=== PATIENT | female | born 1965 | race Caucasian/White ===

== ENCOUNTER → 2017-03-26 | Outpatient (CLI) | payer BC ==
--- NOTE | 2017-03-30 07:19 | MM ---
Reason for exam: screening (asymptomatic). Last mammogram was performed 1 year and 5 months ago. History: Patient is postmenopausal and is nulliparous. Physical Findings: A clinical breast exam by your physician is recommended on an annual basis and results should be correlated with mammographic findings. MG Screening Mammo w CAD Bilateral CC and MLO view(s) were taken. Prior study comparison: November 09, 2015, left breast MG 3d work up w/cad LT. November 01, 2015, bilateral MG screening mammo w CAD. October 04, 2014, bilateral MG screening mammo w CAD. September 12, 2013, bilateral digital screening mammo w/CAD. The breast tissue is heterogeneously dense. This may lower the sensitivity of mammography. No significant changes when compared with prior studies. ASSESSMENT: Negative, BI-RAD 1 RECOMMENDATION: Routine screening mammogram of both breasts in 1 year.
== END | disposition home or self-care (01) ==
LOC: RADMAMWWP 16:31
PROVIDERS: ATTEND Obstetrics & Gynecology
DX: Z12.31 Encounter for screening mammogram for malignant neoplasm of breast (principal)

== ENCOUNTER → 2017-05-28 | Outpatient (CLI) | payer BC ==
--- NOTE | 2017-06-01 07:22 | BD ---
EXAMINATION TYPE: MG DEXA axial skeleton. DATE OF EXAM: 05/28/2017 COMPARISON: NONE CLINICAL HISTORY: N95.1 POST MENOPAUSAL SYMPTOMS Height: 64 Weight: 181 FRAX RISK QUESTIONS: Alcohol (3 or more units per day): NO Family History (Parent hip fracture): NO Glucocorticoids (More than 3mos): NO (Ex: prednisone, prednisolone, methylprednisolone, dexamethasone, and hydrocortisone). History of Fracture in Adulthood: NO Secondary Osteoporosis: NO 1. Type 1 Diabetes: NO 2. Hyperthyroidism: NO 3. Menopause before 45: NO 4. Malnutrition: NO 5. Chronic liver disease: NO Rheumatoid Arthritis: NO Current Tobacco Use: QUIT LONG AGO, SOCIALLY SMOKES RISK FACTORS HISTORY OF: Family History of Osteoporosis: NONE KNOWN Active: SOMEWHAT Diet low in dairy products/other sources of calcium: NO Postmenopausal woman: PT HAD ABLASION....2014 Take estrogen and/or progesterone medications: NATURAL PROGESTERONE Hyperparathyroidism: NO Adrenal Insufficiency: NO MEDICATIONS: Additional Medications: CELEXA, REFLUX MEDS, VIT D Additional History: NONE TO NOTE EXAM MEASUREMENTS: Bone mineral densitometry was performed using the BIO-NEM[employer] System. Bone mineral density as measured about the Lumbar spine is: ----- L1-L4(G/cm2): 1.240 T Score Values are as follows: ----- L1: -0.4 ----- L2: 1.0 ----- L3: 1.2 ----- L4: 0.0 ----- L1-L4: 0.5 Bone mineral density THIS IS THE FIRST BONE DENSITY SCAN FOR HER......BASELINE STUDY Bone mineral density about the R hip (g/cm2): 1.008 Bone mineral density about the L hip (g/cm2): 1.016 T Score values are as follows: -----R Neck: -0.1 -----L Neck: 0.2 -----R Total: 0.0 -----L Total: 0.1 Bone mineral density BASELINE STUDY TODAY FRAX%'S: THERE IS A 3.5% CHANCE OF A MAJOR OSTEOPOROTIC FX AND A 0.1% FOR A HIP FX......PROBABILI TY IN 10 YRS TIME IMPRESSION: Normal (Values between +1 and -1 indicate normal bone mass). Consider repeating this study in 5 year s or sooner if there is some new clinical indication NOTE: T-SCORE=SD OF THE YOUNG ADULT MEAN.
== END ==
LOC: RADBDWWP 16:25
PROVIDERS: ATTEND Obstetrics & Gynecology
DX: N95.1 Menopausal and female climacteric states (principal)
CPT/HCPCS: 77080

== ENCOUNTER 2017-07-27 06:24 | Day surgery (SDC) | payer BC ==
[2017-07-23 13:34] VITALS: BMI 30.2
--- NOTE | 2017-07-26 20:48 | P.HPOB ---
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 Her latest Pap smear was read out as atypical squamous cells of undetermined significance with positive high risk HPV. She underwent a colposcopy that showed cellular changes of HPV based on biopsy and ZOE-1. She has previously been treated with cryotherapy in 2011 and laser excisional conization in 1987 and . She would like definitive surgical treatment to treat this problem. In her latest colposcopy she did show mild dysplasia on endocervical curettings and her biopsy at 7:00 showed focal koilocytic atypia with HPV effect. Obstetrical history: G0. Gynecologic history: She does have a history of herpes with no recent outbreaks. She has no current partner. She has no periods due to ablation. Social history: She is . She works as a retail center receptionist. Review of Systems Constitutional: Denies chills, Denies fever Eyes: denies blurred vision, denies pain Ears, nose, mouth and throat: Denies headache, Denies sore throat Cardiovascular: Denies chest pain, Denies shortness of breath Gastrointestinal: Reports heartburn, Denies abdominal pain, Denies diarrhea, Denies nausea, Denies vomiting Genitourinary: Reports urge incontinence, Denies dysuria, Denies hematuria Menstruation: Reports amenorrhea Musculoskeletal: Reports low back pain, Reports myalgias, Reports neck pain Integumentary: Denies pruritus, Denies rash Neurological: Reports headaches Psychiatric: Denies anxiety, Denies depression Endocrine: Reports flushing Past Medical History Past Medical History: GERD/Reflux Additional Past Medical History / Comment(s): hx of abnormal pap, hx of migraines History of Any Multi-Drug Resistant Organisms: None Reported Past Surgical History: Orthopedic Surgery (Left toe surgery), Uterine Ablation Additional Past Surgical History / Comment(s): LEEP PROCEDURE PREVIOUS Past Anesthesia/Blood Transfusion Reactions: No Reported Reaction Past Psychological History: Depression Smoking Status: Former smoker Past Alcohol Use History: Occasional Past Drug Use History: None Reported - Past Family History Father Family Medical History: Cancer Additional Family Medical History / Comment(s): COLON Medications and Allergies Home Medications Medication Instructions Recorded Confirmed Type Acetaminophen Tab [Tylenol Tab] 325 - 650 mg PO Q4H PRN 07/23/17 07/23/17 History Aspirin [Adult Low Dose Aspirin EC] 81 mg PO DAILY 07/23/17 07/23/17 History Citalopram Hydrobromide 20 mg PO DAILY 07/23/17 07/23/17 History [Citalopram HBr] Imitrex 1 tab PO DAILY PRN 07/23/17 History Multivitamins, Thera [Multivitamin 1 tab PO DAILY 07/23/17 07/23/17 History (formulary)] Omeprazole [Omeprazole] 20 mg PO DAILY 07/23/17 07/23/17 History Allergies Allergy/AdvReac Type Severity Reaction Status Date / Time clindamycin Allergy Rash/Hives Verified 07/23/17 13:25 Exam Osteopathic Statement: *. No significant issues noted on an osteopathic structural exam other than those noted in the History and Physical/Consult. HEENT: Within noimits Heart: Regular rate and rhythm. Lungs: Clear to auscultation bilaterally Abdomen: Soft, nontend Pelvic exam: uterus is anteverted, nontender, with no adnexal masses or tenderness palpated. Extremities: Negative Homans Assessment and Plan (1) Dysplasia of cervix, low grade (ZOE 1) Status: Chronic Code(s): N87.0 - MILD CERVICAL DYSPLASIA SNOMED Code(s): 041684760 Plan: Proceed with loop electrocautery excision procedure. I have discussed the risks, benefits, and alternative therapies for the above- mentioned procedure and for both sedation/anesthesia as well as necessary blood products administration, if indicated, as they pertain to this patient. The patient has indicated her understanding and acceptance of the risks and procedures discussed.
[~2017-07-27 06:24] MED LIST: DEXAMETHASONE SOD PHOSPHATE 10 MG/ML 1 ML VIAL IV ONE; HYDROmorphone 1 MG/ML 1 ML SYRINGE IVP PRN; LACTATED RINGERS 1,000 ML IV SCH; MIDAZOLAM 2 MG/2 ML VIAL IV PRN; ONDANSETRON 4 MG/2 ML VIAL IVP ONE; Pre Op ABX Message 1 EACH MISC MISCELLANE ONE
[2017-07-27] MEDS ORDERED: LIDOCAINE 1% 20 ML VIAL (10MG/ML) FOR IV START INTRADERMA ONE (06:47)
[2017-07-27] MEDS ORDERED: KETOROLAC 30 MG/ML 1 ML VIAL ONE (07:28)
[2017-07-27] MEDS ORDERED: fentaNYL (PF) 50 MCG/ML 2 ML AMP ONE (07:28)
[2017-07-27] MEDS ORDERED: MIDAZOLAM 2 MG/2 ML VIAL ONE (07:28)
[2017-07-27] MEDS ORDERED: PROPOFOL 10 MG/ML 20 ML VIAL IV ONE (07:28)
[2017-07-27] MEDS ORDERED: BUPIVACAINE-EPI 0.5%-1:200,000 10 ML VIAL SQ ONE (07:52)
[2017-07-27] MEDS ORDERED: LIDOCAINE 1% INJ 10MG/ML (20 ML MDV) SQ ONE (07:52)
[2017-07-27] MEDS ORDERED: FERRIC SUBSULFATE (MONSELS) JAR TOPICAL ONE (07:56)
[2017-07-27] MEDS ORDERED: ACETIC ACID 15 DROPS/ML DROPS MISCELLANE ONE (07:57)
[2017-07-27] MEDS ORDERED: IODINE/POTASS IOD (LUGOLS) BTL TOPICAL ONE (07:57)
--- NOTE | 2017-07-27 08:04 | P.OP ---
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 Her latest Pap smear was read out as atypical squamous cells of undetermined significance with positive high risk HPV. She underwent a colposcopy that showed cellular changes of HPV based on biopsy and ZOE-1. She has previously been treated with cryotherapy in 2011 and laser excisional conization in 1987 and . She would like definitive surgical treatment to treat this problem. In her latest colposcopy she did show mild dysplasia on endocervical curettings and her biopsy at 7:00 showed focal koilocytic atypia with HPV effect. Operative Findings: Cervix is nulliparous. No abnormalities are seen with either acetic acid or Lugol solution. Description of Procedure: The patient is taken to the operating room where she is placed in the dorsal lithotomy position. She is prepped and draped in the normal sterile fashion. The bladder is drained with a catheter and then removed. Next a coated bivalve speculum was placed in the patient's vagina and attached to suction. Next colposcopy is performed using a blue light. Next the cervix is swabbed with 5% acetic acid. No abnormalities are visualized. Next the cervix was swabbed with Lugol solution. Again no abnormalities are visualized. Next the cervix is circumferentially injected with a 50-50 mixture of half percent Marcaine and 1% lidocaine with epinephrine. Approximately 7 mL are used using a spinal needle to inject. Next a large cutting loop is used to swipe from left to right using 35 W of cutting power. The specimen is removed and labeled at the 12 o'clock position with a stitch. The bed left behind is then cauterized with ball-tipped cautery. Excellent hemostasis is noted. Next Monsel solution is applied. Excellent hemostasis is noted. All instruments are removed from the vagina. All sponge and needle counts are correct. The patient is then taken to recovery room.
[2017-07-27 08:27] VITALS: TEMP 97.5
[2017-07-27 09:13] VITALS: RESP 16
[2017-07-27 09:57] VITALS: BP 107/74; PULSE 59
== END 2017-07-27 10:24 | disposition home or self-care (01) ==
LOC: OR 06:24
PROVIDERS: ATTEND Obstetrics & Gynecology
DX: N87.9 Dysplasia of cervix uteri, unspecified (principal); R23.4 Changes in skin texture; K21.9 Gastro-esophageal reflux disease without esophagitis; F32.9 Major depressive disorder, single episode, unspecified; K44.9 Diaphragmatic hernia without obstruction or gangrene; Z88.1 Allergy status to other antibiotic agents; Z79.82 Long term (current) use of aspirin; Z79.899 Other long term (current) drug therapy; Z86.19 Personal history of other infectious and parasitic diseases; Z87.891 Personal history of nicotine dependence; Z80.0 Family history of malignant neoplasm of digestive organs
CPT/HCPCS: 57461; 81025; 88307; J2250; J1100; J2405; J2001; J3010; J1885; J2704

== ENCOUNTER 2018-05-10 14:55 | Observation (INO) | payer BC ==
[2018-05-10 15:54] LABS: Basophils % (A) 0 %; Eosinophils # (A) 0.1 k/uL (0-0.7); Eosinophils % (A) 1 %; HCT 43.3 % (34.0-46.0); HGB 14.5 gm/dL (11.4-16.0); Lymphocytes # (A) 1.6 k/uL (1.0-4.8); Lymphocytes % (A) 15 %; MCHC 33.5 g/dL (31.0-37.0); MCV 92.4 fL (80.0-100.0); Mean Platelet Volume 6.4; Monocytes # (A) 0.7 k/uL (0-1.0); Monocytes % (A) 6 %; Neutrophils # (A) 8.4 k/uL (1.3-7.7); Neutrophils % (A) 77 %; Platelet Count 237 k/uL (150-450); RBC 4.69 m/uL (3.80-5.40); RDW 13.2 % (11.5-15.5); WBC 10.9 k/uL (3.8-10.6)
[2018-05-10 15:55] LABS: Amorphous Sediment,Urine Rare /hpf; Appearance,Urine Cloudy (Clear); Bacteria,Urine Rare /hpf; Bilirubin,Urine Negative (Negative); Blood,Urine Negative (Negative); Color,Urine Yellow; Glucose,Urine (UA) Negative (Negative); Ketones,Urine Negative (Negative); Leukocyte Esterase,Urine Moderate (Negative); Mucus,Urine Rare /hpf; Nitrite,Urine Negative (Negative); PH, Urine 5.5 (5.0-8.0); Protein,Urine Negative (Negative); RBC,Urine 1 /hpf (0-5); Squamous Epithelial Cell,Urine 14 /hpf (0-4); Urobilinogen,Urine <2.0 mg/dL (<2.0); WBC,Urine 7 /hpf (0-5)
[2018-05-10] MEDS ORDERED: KETOROLAC 30 MG/ML 1 ML VIAL IVP STA (16:31)
[2018-05-10 16:35] LABS: ALT 29 U/L (9-52); AST 25 U/L (14-36); Albumin 4.4 g/dL (3.5-5.0); Alkaline Phosphatase 48 U/L (38-126); Amylase 62 U/L (30-110); Anion Gap 12 mmol/L; Blood Urea Nitrogen 13 mg/dL (7-17); Calcium 10.8 mg/dL (8.4-10.2); Carbon Dioxide 21 mmol/L (22-30); Chloride 106 mmol/L (98-107); Glucose 97 mg/dL (74-99); Potassium 4.1 mmol/L (3.5-5.1); Sodium 139 mmol/L (137-145); Total Bilirubin 0.7 mg/dL (0.2-1.3); Total Protein 7.5 g/dL (6.3-8.2)
[2018-05-10 16:46] LABS: Basophils % (A) 0 %; Eosinophils # (A) 0.1 k/uL (0-0.7); Eosinophils % (A) 1 %; HCT 43.4 % (34.0-46.0); Lymphocytes # (A) 1.6 k/uL (1.0-4.8); Lymphocytes % (A) 16 %; MCH 29.9 pg (25.0-35.0); MCHC 32.2 g/dL (31.0-37.0); MCV 92.9 fL (80.0-100.0); Mean Platelet Volume 6.3; Monocytes # (A) 0.5 k/uL (0-1.0); Monocytes % (A) 5 %; Neutrophils # (A) 7.5 k/uL (1.3-7.7); Neutrophils % (A) 76 %; Platelet Count 241 k/uL (150-450); RBC 4.67 m/uL (3.80-5.40); RDW 13.2 % (11.5-15.5); WBC 9.9 k/uL (3.8-10.6)
--- NOTE | 2018-05-10 16:54 | ED ---
Abdominal Pain HPI - General Chief Complaint: Abdominal Pain Stated Complaint: RLQ pain & chills Time Seen by Provider: 05/10/18 16:08 Source: patient Mode of arrival: ambulatory Limitations: no limitations - History of Present Illness Initial Comments: 22-year-old female presenting with sharp stabbing right-sided abdominal pain that began yesterday. She states it began in the right upper quadrant, was constant, stabbing, nonradiating and not accompanied by any other symptoms. She states they has migrated to her right lower quadrant and has worsened in intensity. She has not taken any Motrin or Tylenol or other medications. She denies any alleviating or exacerbating factors. Denies any fevers chills, chest pain, shortness of breath, nausea, vomiting, diarrhea. Denies history of inflammatory bowel disease. - Related Data Home Medications Medication Instructions Recorded Confirmed Acetaminophen Tab [Tylenol] 325 - 650 mg PO Q4H PRN 07/23/17 05/10/18 Aspirin [Adult Low Dose Aspirin EC] 81 mg PO DAILY 07/23/17 05/10/18 Imitrex 1 tab PO DAILY PRN 07/23/17 05/10/18 Multivitamins, Thera [Multivitamin 1 tab PO DAILY 07/23/17 05/10/18 (formulary)] Ascorbic Acid [Vitamin C] 500 mg PO DAILY 05/10/18 05/10/18 Cholecalciferol [Vitamin D3] 2,000 unit PO DAILY 05/10/18 05/10/18 Ferrous Sulfate [Feosol] 130 mg PO DAILY 05/10/18 05/10/18 PARoxetine HCL [Paxil Cr] 25 mg PO DAILY 05/10/18 05/10/18 Topiramate [Topamax] 50 mg PO BID 05/10/18 05/10/18 Allergies Allergy/AdvReac Type Severity Reaction Status Date / Time clindamycin Allergy Rash/Hives Verified 05/10/18 17:43 Review of Systems ROS Statement: Those systems with pertinent positive or pertinent negative responses have been documented in the HPI. Review of Systems Constitutional: Denies fever, chills Eyes: Denies change in vision, Denies pain Ears, nose, mouth, throat: Denies headaches, Denies sore throat Cardiovascular: Denies chest pain. Denies palpitations Respiratory: Denies shortness of breath, Denies cough Gastrointestinal: Positive abdominal pain. Denies nausea, vomiting, diarrhea. Genitourinary: Denies hematuria, Denies infections Musculoskeletal: Denies pain, Denies swelling Integumentary: Denies rash Neurological: Denies headache, focal weakness, focal numbness Psychiatric: Denies anxiety, Denies depression Hematologic/Lymphatic: Denies easy bleeding or bruising ROS Other: All systems not noted in ROS Statement are negative. Past Medical History Past Medical History: GERD/Reflux Additional Past Medical History / Comment(s): hx of abnormal pap, hx of migraines History of Any Multi-Drug Resistant Organisms: None Reported Past Surgical History: Orthopedic Surgery, Uterine Ablation Additional Past Surgical History / Comment(s): LEEP PROCEDURE PREVIOUS Past Anesthesia/Blood Transfusion Reactions: No Reported Reaction Past Psychological History: Anxiety, Depression Smoking Status: Former smoker Past Alcohol Use History: Occasional Past Drug Use History: None Reported - Past Family History Father Family Medical History: Cancer Additional Family Medical History / Comment(s): COLON General Exam - General Exam Comments Initial Comments: General: Awake, alert, No acute Distress HENT: Normocephalic. Atraumatic Eyes: PERRL. EOMI. No scleral icterus. No injected conjunctiva Neck: Full ROM Chest/Lungs: Clear to auscultation bilaterally. No wheezing, rhonchi, or rales Cardiac: Regular rate, rhythm. No murmurs or rubs Abdomen/GI: Soft. TTP in RUQ and RLQ (Mcburney's point). Guarding. No rebound tenderness. No psoas sign. Musculoskeletal: Full ROM Skin: Warm, dry, intact Neurologic: A/Ox3, no weakness, no sensory deficit, no abnormal gait, no coordination deficit Limitations: no limitations Course Vital Signs 05/10/18 05/10/18 05/10/18 15:13 15:21 16:22 Temperature 99.1 F Pulse Rate 83 75 68 Respiratory 18 18 18 Rate Blood Pressure 137/81 110/62 104/58 O2 Sat by Pulse 100 98 100 Oximetry 05/10/18 05/10/18 05/10/18 17:13 17:52 18:29 Temperature 98.6 F Pulse Rate 68 66 70 Respiratory 18 18 18 Rate Blood Pressure 107/58 101/58 101/56 O2 Sat by Pulse 100 96 96 Oximetry Medical Decision Making - Medical Decision Making 52-year-old male presenting with right-sided abdominal pain. Initial exam the patient is awake, alert, no acute distress. VSS. She is tenderness along the entire right side of her abdomen but is more tender in the right lower quadrant. Patient on have acute appendicitis. Patient last ate or drank at [address] I spoke with Dr. Eng states he was the patient the OR tonight. - Lab Data Result diagrams: 05/10/18 16:35 05/10/18 16:35 Lab Results 05/10/18 05/10/18 05/10/18 Range/Units 15:40 15:41 15:41 WBC 10.9 H (3.8-10.6) k/uL RBC 4.69 (3.80-5.40) m/uL Hgb 14.5 (11.4-16.0) gm/dL Hct 43.3 (34.0-46.0) % MCV 92.4 (80.0-100.0) fL MCH 31.0 (25.0-35.0) pg MCHC 33.5 (31.0-37.0) g/dL RDW 13.2 (11.5-15.5) % Plt Count 237 (150-450) k/uL Neutrophils % 77 % Lymphocytes % 15 % Monocytes % 6 % Eosinophils % 1 % Basophils % 0 % Neutrophils # 8.4 H (1.3-7.7) k/uL Lymphocytes # 1.6 (1.0-4.8) k/uL Monocytes # 0.7 (0-1.0) k/uL Eosinophils # 0.1 (0-0.7) k/uL Basophils # 0.0 (0-0.2) k/uL Sodium 139 (137-145) mmol/L Potassium 4.1 (3.5-5.1) mmol/L Chloride 106 (98-107) mmol/L Carbon Dioxide 21 L (22-30) mmol/L Anion Gap 12 mmol/L BUN 13 (7-17) mg/dL Creatinine 0.70 (0.52-1.04) mg/dL Est GFR (CKD-EPI)AfAm >90 (>60 ml/min/1.73 sqM) Est GFR (CKD-EPI)NonAf >90 (>60 ml/min/1.73 sqM) Glucose 97 (74-99) mg/dL Calcium 10.8 H (8.4-10.2) mg/dL Total Bilirubin 0.7 (0.2-1.3) mg/dL Conjugated Bilirubin (0.0-0.3) mg/dL Unconjugated Bilirubin (0.0-1.1) mg/dL Delta Bilirubin (0.0-0.2) mg/dL AST 25 (14-36) U/L ALT 29 (9-52) U/L Alkaline Phosphatase 48 (38-126) U/L Total Protein 7.5 (6.3-8.2) g/dL Albumin 4.4 (3.5-5.0) g/dL Amylase 62 (30-110) U/L Lipase (23-300) U/L Urine Color Yellow Urine Appearance Cloudy H (Clear) Urine pH 5.5 (5.0-8.0) Ur Specific [place] 1.010 (1.001-1.035) Urine Protein Negative (Negative) Urine Glucose (UA) Negative (Negative) Urine Ketones Negative (Negative) Urine Blood Negative (Negative) Urine Nitrite Negative (Negative) Urine Bilirubin Negative (Negative) Urine Urobilinogen <2.0 (<2.0) mg/dL Ur Leukocyte Esterase Moderate H (Negative) Urine RBC 1 (0-5) /hpf Urine WBC 7 H (0-5) /hpf Ur Squamous Epith Cells 14 H (0-4) /hpf Amorphous Sediment Rare H (None) /hpf Urine Bacteria Rare H (None) /hpf Urine Mucus Rare H (None) /hpf 05/10/18 05/10/18 05/10/18 Range/Units 15:43 16:35 16:35 WBC 9.9 (3.8-10.6) k/uL RBC 4.67 (3.80-5.40) m/uL Hgb 14.0 (11.4-16.0) gm/dL Hct 43.4 (34.0-46.0) % MCV 92.9 (80.0-100.0) fL MCH 29.9 (25.0-35.0) pg MCHC 32.2 (31.0-37.0) g/dL RDW 13.2 (11.5-15.5) % Plt Count 241 (150-450) k/uL Neutrophils % 76 % Lymphocytes % 16 % Monocytes % 5 % Eosinophils % 1 % Basophils % 0 % Neutrophils # 7.5 (1.3-7.7) k/uL Lymphocytes # 1.6 (1.0-4.8) k/uL Monocytes # 0.5 (0-1.0) k/uL Eosinophils # 0.1 (0-0.7) k/uL Basophils # 0.0 (0-0.2) k/uL Sodium 139 (137-145) mmol/L Potassium 4.0 (3.5-5.1) mmol/L Chloride 105 (98-107) mmol/L Carbon Dioxide 25 (22-30) mmol/L Anion Gap 9 mmol/L BUN 12 (7-17) mg/dL Creatinine 0.73 (0.52-1.04) mg/dL Est GFR (CKD-EPI)AfAm >90 (>60 ml/min/1.73 sqM) Est GFR (CKD-EPI)NonAf >90 (>60 ml/min/1.73 sqM) Glucose 93 (74-99) mg/dL Calcium 10.6 H (8.4-10.2) mg/dL Total Bilirubin 0.6 (0.2-1.3) mg/dL Conjugated Bilirubin 0.0 (0.0-0.3) mg/dL Unconjugated Bilirubin 0.5 (0.0-1.1) mg/dL Delta Bilirubin 0.1 (0.0-0.2) mg/dL AST 23 (14-36) U/L ALT 31 (9-52) U/L Alkaline Phosphatase 47 (38-126) U/L Total Protein 7.2 (6.3-8.2) g/dL Albumin 4.3 (3.5-5.0) g/dL Amylase (30-110) U/L Lipase 29 (23-300) U/L Urine Color Urine Appearance (Clear) Urine pH (5.0-8.0) Ur Specific [place] (1.001-1.035) Urine Protein (Negative) Urine Glucose (UA) (Negative) Urine Ketones (Negative) Urine Blood (Negative) Urine Nitrite (Negative) Urine Bilirubin (Negative) Urine Urobilinogen (<2.0) mg/dL Ur Leukocyte Esterase (Negative) Urine RBC (0-5) /hpf Urine WBC (0-5) /hpf Ur Squamous Epith Cells (0-4) /hpf Amorphous Sediment (None) /hpf Urine Bacteria (None) /hpf Urine Mucus (None) /hpf Disposition Clinical Impression: Acute appendicitis Disposition: ADMITTED IP TO THIS HOSP Is patient prescribed a controlled substance at d/c from ED?: No
[2018-05-10 16:55] LABS: ALT 31 U/L (9-52); AST 23 U/L (14-36); Albumin 4.3 g/dL (3.5-5.0); Alkaline Phosphatase 47 U/L (38-126); Anion Gap 9 mmol/L; Bilirubin, Delta 0.1 mg/dL (0.0-0.2); Bilirubin,Unconjugated 0.5 mg/dL (0.0-1.1); Blood Urea Nitrogen 12 mg/dL (7-17); Calcium 10.6 mg/dL (8.4-10.2); Carbon Dioxide 25 mmol/L (22-30); Chloride 105 mmol/L (98-107); Glucose 93 mg/dL (74-99); Sodium 139 mmol/L (137-145); Total Bilirubin 0.6 mg/dL (0.2-1.3); Total Protein 7.2 g/dL (6.3-8.2)
--- NOTE | 2018-05-10 17:22 | CT ---
EXAMINATION TYPE: CT abdomen pelvis wo con DATE OF EXAM: 05/10/2018 COMPARISON: 09/13/2016 HISTORY: RLQ pain CT DLP: 448.5 mGycm Automated exposure control for dose reduction was used. TECHNIQUE: Helical acquisition of images was performed from the lung bases through the pelvis. FINDINGS: There is subsegmental atelectasis at the lung bases. There is no pleural effusion. Liver spleen pancr eas gallbladder appear normal. Bile ducts are not dilated. There is a 3 mm calcification at the anter ior body of the pancreas. Unchanged. There is no adrenal mass. Kidneys have normal size and contour. There is no hydronephrosis. Ureters a re not dilated. There is no retroperitoneal adenopathy. There is fat stranding in the right lower arnoldo drant with a thickened 13 mm appendix that is posterior. There is no sign of free air. There is no as cites. Bladder distends smoothly. Uterus is anteverted. Bony structures are intact. IMPRESSION: THICKENED POSTERIOR APPENDIX WITH FAT STRANDING CONSISTENT WITH ACUTE APPENDICITIS. THIS APPEARS NEW COMPARED TO OLD CT SCAN. NO ABSCESS.
[2018-05-10] MEDS ORDERED: cefTRIAXone IN SWFI 1,000 MG/10 ML SYRINGE IVP STA (18:07)
[2018-05-10] MEDS ORDERED: metroNIDAZOLE-NS PMX 500 MG in SALINE 1 100ML.BAG IVPB STA (18:07)
[2018-05-10] MEDS ORDERED: DEXAMETHASONE SOD PHOSPHATE 10 MG/ML 1 ML VIAL IV ONE (18:23)
[2018-05-10] MEDS ORDERED: ONDANSETRON 4 MG/2 ML VIAL IVP ONE (18:23)
[2018-05-10] MEDS ORDERED: MIDAZOLAM 2 MG/2 ML VIAL IV PRN (18:23)
[2018-05-10] MEDS ORDERED: fentaNYL (PF) 50 MCG/ML 2 ML AMP IV PRN (18:23)
[2018-05-10] MEDS ORDERED: NALOXONE 0.4 MG/ML 1 ML VIAL IV PRN ×2 (18:27→19:52)
--- NOTE | 2018-05-10 18:58 | P.GSHP ---
History of Present Illness H&P Date: 05/10/18 Chief Complaint: Right lower quadrant pain This is a 52-year-old female with a 48 hour history of right quadrant pain. Patient states pain started in the right lower quadrant 2 days ago. The pain is worse and she presented emergency room. She underwent CAT scan was found have evidence of acute appendicitis. Past Medical History Past Medical History: GERD/Reflux Additional Past Medical History / Comment(s): hx of abnormal pap, hx of migraines History of Any Multi-Drug Resistant Organisms: None Reported Past Surgical History: Orthopedic Surgery, Uterine Ablation Additional Past Surgical History / Comment(s): LEEP PROCEDURE PREVIOUS Past Anesthesia/Blood Transfusion Reactions: No Reported Reaction Past Psychological History: Anxiety, Depression Smoking Status: Former smoker Past Alcohol Use History: Occasional Past Drug Use History: None Reported - Past Family History Father Family Medical History: Cancer Additional Family Medical History / Comment(s): COLON Medications and Allergies Home Medications Medication Instructions Recorded Confirmed Type Acetaminophen Tab [Tylenol] 325 - 650 mg PO Q4H PRN 07/23/17 05/10/18 History Aspirin [Adult Low Dose Aspirin EC] 81 mg PO DAILY 07/23/17 05/10/18 History Imitrex 1 tab PO DAILY PRN 07/23/17 05/10/18 History Multivitamins, Thera [Multivitamin 1 tab PO DAILY 07/23/17 05/10/18 History (formulary)] Ascorbic Acid [Vitamin C] 500 mg PO DAILY 05/10/18 05/10/18 History Cholecalciferol [Vitamin D3] 2,000 unit PO DAILY 05/10/18 05/10/18 History Ferrous Sulfate [Feosol] 130 mg PO DAILY 05/10/18 05/10/18 History PARoxetine HCL [Paxil Cr] 25 mg PO DAILY 05/10/18 05/10/18 History Topiramate [Topamax] 50 mg PO BID 05/10/18 05/10/18 History Allergies Allergy/AdvReac Type Severity Reaction Status Date / Time clindamycin Allergy Rash/Hives Verified 05/10/18 17:43 Surgical - Exam Vital Signs Pulse Resp BP Pulse Ox 83 18 137/81 100 05/10/18 15:13 05/10/18 15:13 05/10/18 15:13 05/10/18 15:13 - General well developed, no distress - Eyes PERRL - ENT normal pinna - Neck no masses - Respiratory normal expansion - Cardiovascular Rhythm: regular - Abdomen Right lower quadrant pain Abdomen: soft Results - Labs 05/10/18 16:35 05/10/18 16:35 Abnormal Lab Results - Last 24 Hours (Table) 05/10/18 05/10/18 05/10/18 Range/Units 15:40 15:41 15:41 WBC 10.9 H (3.8-10.6) k/uL Neutrophils # 8.4 H (1.3-7.7) k/uL Carbon Dioxide 21 L (22-30) mmol/L Calcium 10.8 H (8.4-10.2) mg/dL Urine Appearance Cloudy H (Clear) Ur Leukocyte Esterase Moderate H (Negative) Urine WBC 7 H (0-5) /hpf Ur Squamous Epith Cells 14 H (0-4) /hpf Amorphous Sediment Rare H (None) /hpf Urine Bacteria Rare H (None) /hpf Urine Mucus Rare H (None) /hpf 05/10/18 Range/Units 16:35 WBC (3.8-10.6) k/uL Neutrophils # (1.3-7.7) k/uL Carbon Dioxide (22-30) mmol/L Calcium 10.6 H (8.4-10.2) mg/dL Urine Appearance (Clear) Ur Leukocyte Esterase (Negative) Urine WBC (0-5) /hpf Ur Squamous Epith Cells (0-4) /hpf Amorphous Sediment (None) /hpf Urine Bacteria (None) /hpf Urine Mucus (None) /hpf Diabetes panel 05/10/18 05/10/18 Range/Units 15:40 16:35 Sodium 139 139 (137-145) mmol/L Potassium 4.1 4.0 (3.5-5.1) mmol/L Chloride 106 105 (98-107) mmol/L Carbon Dioxide 21 L 25 (22-30) mmol/L BUN 13 12 (7-17) mg/dL Creatinine 0.70 0.73 (0.52-1.04) mg/dL Glucose 97 93 (74-99) mg/dL Calcium 10.8 H 10.6 H (8.4-10.2) mg/dL AST 25 23 (14-36) U/L ALT 29 31 (9-52) U/L Alkaline Phosphatase 48 47 (38-126) U/L Total Protein 7.5 7.2 (6.3-8.2) g/dL Albumin 4.4 4.3 (3.5-5.0) g/dL Calcium panel 05/10/18 05/10/18 Range/Units 15:40 16:35 Calcium 10.8 H 10.6 H (8.4-10.2) mg/dL Albumin 4.4 4.3 (3.5-5.0) g/dL Pituitary panel 05/10/18 05/10/18 Range/Units 15:40 16:35 Sodium 139 139 (137-145) mmol/L Potassium 4.1 4.0 (3.5-5.1) mmol/L Chloride 106 105 (98-107) mmol/L Carbon Dioxide 21 L 25 (22-30) mmol/L BUN 13 12 (7-17) mg/dL Creatinine 0.70 0.73 (0.52-1.04) mg/dL Glucose 97 93 (74-99) mg/dL Calcium 10.8 H 10.6 H (8.4-10.2) mg/dL Adrenal panel 05/10/18 05/10/18 Range/Units 15:40 16:35 Sodium 139 139 (137-145) mmol/L Potassium 4.1 4.0 (3.5-5.1) mmol/L Chloride 106 105 (98-107) mmol/L Carbon Dioxide 21 L 25 (22-30) mmol/L BUN 13 12 (7-17) mg/dL Creatinine 0.70 0.73 (0.52-1.04) mg/dL Glucose 97 93 (74-99) mg/dL Calcium 10.8 H 10.6 H (8.4-10.2) mg/dL Total Bilirubin 0.7 0.6 (0.2-1.3) mg/dL AST 25 23 (14-36) U/L ALT 29 31 (9-52) U/L Alkaline Phosphatase 48 47 (38-126) U/L Total Protein 7.5 7.2 (6.3-8.2) g/dL Albumin 4.4 4.3 (3.5-5.0) g/dL - Imaging CT scan - abdomen: report reviewed (Thickened appendix consistent with acute appendicitis)
[2018-05-10] MEDS ORDERED: fentaNYL (PF) 50 MCG/ML 2 ML AMP ONE (19:14)
[2018-05-10] MEDS ORDERED: ONDANSETRON 4 MG/2 ML VIAL ONE (19:14)
[2018-05-10] MEDS ORDERED: NEOSTIGMINE 1 MG/ML 10 ML VIAL ONE (19:14)
[2018-05-10] MEDS ORDERED: HEPARIN SODIUM,PORCINE 5,000 UNIT/ML 1 ML VIAL ONE (19:14)
[2018-05-10] MEDS ORDERED: LIDOCAINE 1% INJ 10MG/ML (20 ML MDV) ONE (19:14)
[2018-05-10] MEDS ORDERED: PROPOFOL 10 MG/ML 20 ML VIAL IV ONE (19:14)
[2018-05-10] MEDS ORDERED: IV FLUID CONTINUATION 1,000 ML IV ONE (19:14)
[2018-05-10] MEDS ORDERED: ROCURONIUM BROMIDE 10 MG/ML 10 ML VIAL IV ONE (19:14)
[2018-05-10] MEDS ORDERED: MIDAZOLAM 2 MG/2 ML VIAL ONE (19:14)
[2018-05-10] MEDS ORDERED: GLYCOPYRROLATE 0.2 MG/ML 2 ML VIAL ONE (19:14)
[2018-05-10] MEDS ORDERED: DEXAMETHASONE SOD PHOS (MDV) 100 MG/10 ML VIAL ONE (19:14)
[2018-05-10] MEDS ORDERED: SUCCINYLCHOLINE CHLORIDE 100 MG/5 ML SYR IV ONE (19:14)
[2018-05-10] MEDS ORDERED: BUPIVACAIN-EPI 0.5%-1:200,000 30 ML VIAL SQ ONE (19:31)
[2018-05-10] MEDS ORDERED: HYDROmorphone 1 MG/ML 1 ML SYRINGE IVP PRN (19:52)
[2018-05-10] MEDS ORDERED: HYDROcodone/APAP 5-325MG 1 EACH TAB PO PRN (19:52)
[2018-05-10] MEDS ORDERED: traMADol 50 MG TAB PO PRN (19:52)
[2018-05-10] MEDS ORDERED: ONDANSETRON 4 MG/2 ML VIAL IVP PRN (19:52)
[2018-05-10] MEDS ORDERED: LACTATED RINGERS 1,000 ML IV ONE (19:52)
--- NOTE | 2018-05-10 19:52 | P.OP ---
Date of Procedure: 05/10/18 Preoperative Diagnosis: Acute appendicitis Postoperative Diagnosis: Acute appendicitis Procedure(s) Performed: Laparoscopic appendectomy Anesthesia: DAVI Surgeon: Karel Eng Estimated Blood Loss (ml): 5 Pathology: other (Appendix) Condition: stable Disposition: PACU Description of Procedure: WThe patient's placed on the operating table in the supine position. The patient received general anesthesia. The abdomen was prepped and draped in the usual sterile fashion. The skin was anesthetized 1% local Xylocaine at the trocar sites. Using an 11 blade the skin was incised at the umbilicus. The umbilicus was grasped with a Alysia clamp and then a Veress needle was placed into the peritoneal cavity. Position of the Veress needle was confirmed with positive drop test. After adequate insufflation a 5 mm trocar was placed into the peritoneal cavity. The abdomen was further insufflated. And then the laparoscope was placed in the peritoneal cavity. Next a 5 mm trocar was placed in the midline suprapubic position. And then a 10 mm trocar was placed in the midline epigastric position. The patient was rotated with the right side up and in Trendelenburg. The appendix was visualized. The appendix appeared to be inflamed. The appendix was grasped and then using the Harmonic scissors the mesoappendix was divided. A PDS Endoloop was then placed around the base of the appendix. And then the appendix was divided using Harmonic scissors. The appendix was placed into an Endo Catch and brought out through the 10 mm trocar site. The abdomen was irrigated. There is no bleeding seen. The trochars withdrawn. The skin was closed interrupted 3-0 Monocryl suture. Dermabond dressing was applied. Patient was sent to recovery room in stable condition.
[2018-05-10] MEDS: DOCUSATE 100 MG CAP PO SCH (22:02)
[2018-05-10] MEDS: KETOROLAC 30 MG/ML 1 ML VIAL IVP SCH (22:02)
[2018-05-11] MEDS: KETOROLAC 30 MG/ML 1 ML VIAL IVP SCH ×2 (05:39→11:53)
[2018-05-11] MEDS ORDERED: SODIUM CHLORIDE 0.9% 1,000 ML IV ONE (08:25)
[2018-05-11] MEDS: DOCUSATE 100 MG CAP PO SCH (08:44)
[2018-05-11] MEDS ORDERED: LEVOFLOXACIN 500MG-D5W PMX 500 MG in DEXTROSE/WATER 1 100ML.BAG IVPB SCH (09:00)
[2018-05-11] MEDS ORDERED: ENOXAPARIN 40 MG/0.4 ML SYRINGE SQ SCH (09:00)
[2018-05-11] MEDS ORDERED: PARoxetine 20 MG TAB PO SCH (09:45)
--- NOTE | 2018-05-11 09:54 | P.CONS ---
History of Present Illness - Reason for Consult Consult date: 05/11/18 medical management Requesting physician: Karel Eng - Chief Complaint Acute appendicitis - History of Present Illness This is a 52 [address] old patient of Dr. Mcdowell. Patient presented to the emergency room after being sent from primary care provider with right-sided abdominal pain. Patient complained of stabbing right abdominal pain that started yesterday (the right coronary that has migrated to the right lower quadrant. CT of abdomen and pelvis completed showing thickened posterior fat stranding consistent with acute appendicitis. [place] compared to old computed tomography scan. Patient underwenta laprascopic appendectomy with Dr. Eng yesterday evening. Patient has significant medical history for GERD migraines, anxiety and depression. Today, patient resting comfortably with minimal complaints of pain. Per surgical team patient has been placed on Levaquin antibiotic. Patient has been tolerating full liquid diet. She denies chest pain or shortness of breath. Denies nausea vomiting or diarrhea. Denies any urinary burning or frequency. Review of Systems Please refer to HPI otherwise unremarkable Past Medical History Past Medical History: GERD/Reflux Additional Past Medical History / Comment(s): hx of abnormal pap, hx of migraines, abnormal heart beat. stress test 2012. History of Any Multi-Drug Resistant Organisms: None Reported Past Surgical History: Orthopedic Surgery, Uterine Ablation Additional Past Surgical History / Comment(s): LEEP PROCEDURE PREVIOUS Past Anesthesia/Blood Transfusion Reactions: No Reported Reaction Past Psychological History: Anxiety, Depression Smoking Status: Former smoker Past Alcohol Use History: Occasional Additional Past Alcohol Use History / Comment(s): QUIT SMOKING APPROX 1996, STARTED SMOKING AGE 19, 1PPD Past Drug Use History: None Reported - Past Family History Father Family Medical History: Cancer Additional Family Medical History / Comment(s): COLON Medications and Allergies Home Medications Medication Instructions Recorded Confirmed Type Acetaminophen Tab [Tylenol] 325 - 650 mg PO Q4H PRN 07/23/17 05/10/18 History Aspirin [Adult Low Dose Aspirin EC] 81 mg PO DAILY 07/23/17 05/10/18 History Imitrex 1 tab PO DAILY PRN 07/23/17 05/10/18 History Multivitamins, Thera [Multivitamin 1 tab PO DAILY 07/23/17 05/10/18 History (formulary)] Ascorbic Acid [Vitamin C] 500 mg PO DAILY 05/10/18 05/10/18 History Cholecalciferol [Vitamin D3] 2,000 unit PO DAILY 05/10/18 05/10/18 History Ferrous Sulfate [Feosol] 130 mg PO DAILY 05/10/18 05/10/18 History PARoxetine HCL [Paxil Cr] 25 mg PO DAILY 05/10/18 05/10/18 History Topiramate [Topamax] 50 mg PO BID 05/10/18 05/10/18 History Allergies Allergy/AdvReac Type Severity Reaction Status Date / Time clindamycin Allergy Intermediate Rash/Hives Verified 05/10/18 21:04 Physical Exam Vitals: Vital Signs Temp Pulse Pulse Pulse Resp BP BP 05/11/18 08:45 54 L 05/11/18 08:35 97.7 F 54 L 16 97/60 05/11/18 01:51 62 18 99/68 05/10/18 23:55 62 18 99/56 05/10/18 22:55 70 16 99/57 05/10/18 22:15 73 16 100/69 05/10/18 21:45 66 16 116/39 05/10/18 21:30 70 16 110/78 05/10/18 21:15 77 16 106/70 05/10/18 21:00 98.2 F 78 16 113/67 05/10/18 20:35 67 18 105/58 05/10/18 20:20 63 16 117/56 05/10/18 20:06 97.2 F L 80 18 125/61 05/10/18 19:12 66 18 102/62 05/10/18 18:29 98.6 F 70 18 101/56 05/10/18 17:52 66 18 101/58 05/10/18 17:13 68 18 107/58 05/10/18 16:22 68 18 104/58 05/10/18 15:21 99.1 F 75 18 110/62 05/10/18 15:13 83 18 137/81 Pulse Ox 05/11/18 08:45 05/11/18 08:35 97 05/11/18 01:51 96 05/10/18 23:55 95 05/10/18 22:55 94 L 05/10/18 22:15 95 05/10/18 21:45 96 05/10/18 21:30 96 05/10/18 21:15 96 05/10/18 21:00 97 05/10/18 20:35 96 05/10/18 20:20 95 05/10/18 20:06 96 05/10/18 19:12 97 05/10/18 18:29 96 05/10/18 17:52 96 05/10/18 17:13 100 05/10/18 16:22 100 05/10/18 15:21 98 05/10/18 15:13 100 Intake and Output 05/10/18 05/11/18 05/11/18 22:59 06:59 14:59 Intake Total 1260 580 Output Total 3 500 Balance 1257 80 Intake: IV 300 Oral 960 580 Output: Urine 500 Estimated Blood Loss 3 Other: Weight 78.471 kg Head normocephalic Neck supple Lungs clear to auscultation bilaterally no wheezing or crackles Heart regular rate and rhythm S1-S2, no rub or gallop Abdomen is soft nontender nondistended positive bowel sounds no hepatosplenomegaly Extremities no edema Neuro alert and orientated to 3 Results CBC & Chem 7: 05/10/18 16:35 05/10/18 16:35 Labs: Abnormal Lab Results - Last 24 Hours (Table) 05/10/18 05/10/18 05/10/18 Range/Units 15:40 15:41 15:41 WBC 10.9 H (3.8-10.6) k/uL Neutrophils # 8.4 H (1.3-7.7) k/uL Carbon Dioxide 21 L (22-30) mmol/L Calcium 10.8 H (8.4-10.2) mg/dL Urine Appearance Cloudy H (Clear) Ur Leukocyte Esterase Moderate H (Negative) Urine WBC 7 H (0-5) /hpf Ur Squamous Epith Cells 14 H (0-4) /hpf Amorphous Sediment Rare H (None) /hpf Urine Bacteria Rare H (None) /hpf Urine Mucus Rare H (None) /hpf 05/10/18 Range/Units 16:35 WBC (3.8-10.6) k/uL Neutrophils # (1.3-7.7) k/uL Carbon Dioxide (22-30) mmol/L Calcium 10.6 H (8.4-10.2) mg/dL Urine Appearance (Clear) Ur Leukocyte Esterase (Negative) Urine WBC (0-5) /hpf Ur Squamous Epith Cells (0-4) /hpf Amorphous Sediment (None) /hpf Urine Bacteria (None) /hpf Urine Mucus (None) /hpf Assessment and Plan Assessment: 1. Acute appendicitis. Status post laparoscopic Appendectomy with Dr. Eng. Postop day 1. Patient currently on Levaquin per surgical team. patient on full liquid diet 2. History of GERD 3. History of depression. Continue Paxil 4. History of migraines 5. Positive urinary analysis. UA showing moderate amount of leukocyte Estrace. Also had squamous epith cells. Patient denies any urinary symptoms. Urine culture has been ordered Thank you for this consultation we will continue to follow patient throughout stay Time with Patient: Greater than 30 (Greater than 60% of the total time spent in counseling and coordination of care.I performed an examination of the patient and discussed their management with the Nurse Practitioner. I have reviewed the Nurse Practitioner's notes and agree with the documented findings and plan of care)
--- NOTE | 2018-05-11 13:53 | P.DS ---
Providers Date of admission: 05/10/18 18:27 Expected date of discharge: 05/11/18 Attending physician: Karel Eng Consults: 05/10/18 19:52 Consult Physician Routine Consulting Provider: Anu Cadena Consult Reason/Comments: Medical management Do you want consulting provider notified?: Yes Primary care physician: [facility] Course: 42-year-old female presented with right upper quadrant abdominal patient stated that she was seen by her primary care provider for right-sided abdominal pain advised comment emergency room. CAT scan of the abdomen pelvis showed findings consistent with acute appendicitis. Patient has past medical history of esophageal reflux anxiety and depression. Patient underwent laparoscopic appendectomy for acute appendicitis on May 10 no postop events patient was felt stable and appropriate proceed with a discharge Impression discharge diagnosis Right upper quadrant abdominal pain suspect due to acute appendicitis Computed tomography scan of the abdomen pelvis show findings consistent with acute appendicitis Esophageal reflux Asymptomatic UTI The above impression and plan of care have been discussed and directed by signing physician. Alesha Willingham nurse practitioner acting as scribe for signing physician. Plan - Discharge Summary Discharge Rx Participant: No New Discharge Prescriptions: New HYDROcodone/APAP 5-325MG [[place] 5-325] 1 each PO Q4HR PRN #18 tab PRN Reason: Mild Pain Levofloxacin [Levaquin] 500 mg PO DAILY #5 tab Continue Acetaminophen Tab [Tylenol] 325 - 650 mg PO Q4H PRN PRN Reason: Pain Multivitamins, Thera [Multivitamin (formulary)] 1 tab PO DAILY Imitrex 1 tab PO DAILY PRN PRN Reason: Migraine Headache Aspirin [Adult Low Dose Aspirin EC] 81 mg PO DAILY Ferrous Sulfate [Iron (65 MG Elemental)] 325 mg PO DAILY Cholecalciferol [Vitamin D3] 2,000 unit PO DAILY Ascorbic Acid [Vitamin C] 500 mg PO DAILY Topiramate [Topamax] 50 mg PO BID PARoxetine HCL 20 mg PO DAILY Discharge Medication List Acetaminophen Tab [Tylenol] 325 - 650 mg PO Q4H PRN 07/23/17 [History] Aspirin [Adult Low Dose Aspirin EC] 81 mg PO DAILY 07/23/17 [History] Imitrex 1 tab PO DAILY PRN 07/23/17 [History] Multivitamins, Thera [Multivitamin (formulary)] 1 tab PO DAILY 07/23/17 [History ] Ascorbic Acid [Vitamin C] 500 mg PO DAILY 05/10/18 [History] Cholecalciferol [Vitamin D3] 2,000 unit PO DAILY 05/10/18 [History] Ferrous Sulfate [Iron (65 MG Elemental)] 325 mg PO DAILY 05/10/18 [History] Topiramate [Topamax] 50 mg PO BID 05/10/18 [History] HYDROcodone/APAP 5-325MG [[place] 5-325] 1 each PO Q4HR PRN #18 tab 05/11/18 [Rx] Levofloxacin [Levaquin] 500 mg PO DAILY #5 tab 05/11/18 [Rx] PARoxetine HCL 20 mg PO DAILY 05/11/18 [History] Follow up Appointment(s)/Referral(s): Maliha Gonzalez MD [Primary Care Provider] - 1-2 days Karle Eng MD [STAFF PHYSICIAN] - 10 Days Activity/Diet/Wound Care/Special Instructions: No tub bath for six weeks. Shower daily. No lifting over 10 pounds for the next 6 weeks. May use ice packs to surgical site. No driving while taking narcotic for pain. Do not remove the plastic dressings from surgical site Discharge Disposition: HOME SELF-CARE
[2018-05-11 13:55] VITALS: BP 94/55; PULSE 61; RESP 20; TEMP 97.4
[2018-05-11] MEDS ORDERED: TOPIRAMATE 25 MG TAB PO SCH (21:00)
== END 2018-05-11 14:40 | disposition home or self-care (01) ==
LOC: EC 14:55 → 6PED 18:27
PROVIDERS: ADMIT Surgery; ATTEND Surgery
DX: K35.3 Acute appendicitis with localized peritonitis (principal); N39.0 Urinary tract infection, site not specified; K21.9 Gastro-esophageal reflux disease without esophagitis; G43.909 Migraine, unspecified, not intractable, without status migrainosus; F32.9 Major depressive disorder, single episode, unspecified; F41.9 Anxiety disorder, unspecified; Z79.82 Long term (current) use of aspirin; Z79.899 Other long term (current) drug therapy; Z88.1 Allergy status to other antibiotic agents; Z87.891 Personal history of nicotine dependence; Z87.42 Personal history of other diseases of the female genital tract; Z80.0 Family history of malignant neoplasm of digestive organs
CPT/HCPCS: 44970; 99285 ×2; 96374 ×2; 96375 ×2; 36415; 88304; 80053; 80048; 80076; 82150; 83690; 85025; 81001; 81025; 87086; 74176; G0378 ×2; J2250; J1644; J2710; J2405; J1956; J2001; J1650; J0696; J3010; J1885 ×2; J1100; J0330; J2704

== ENCOUNTER → 2018-10-04 | Outpatient (CLI) | payer BC ==
--- NOTE | 2018-10-09 11:36 | MM ---
Reason for exam: screening (asymptomatic). Last mammogram was performed 1 year and 6 months ago. History: Patient is postmenopausal and is nulliparous. MG Screening Mammo w CAD Bilateral CC and MLO view(s) were taken. Prior study comparison: March 26, 2017, bilateral MG screening mammo w CAD. November 09, 2015, left breast MG 3d work up w/cad LT. The breast tissue is heterogeneously dense. This may lower the sensitivity of mammography. There are benign round dystrophic left breast calcifications. there is asymmetric breast tissue in the right upper breast that is stable. No discrete abnormality. ASSESSMENT: Benign, BI-RAD 2 RECOMMENDATION: Routine screening mammogram of both breasts in 1 year.
== END | disposition home or self-care (01) ==
LOC: RADMAMWWP 16:20
PROVIDERS: ATTEND Obstetrics & Gynecology
DX: Z12.31 Encounter for screening mammogram for malignant neoplasm of breast (principal)
CPT/HCPCS: 77067

== ENCOUNTER 2019-04-14 18:30 | Inpatient (IN) | payer BC ==
[2019-04-14] MEDS ORDERED: SODIUM CHLORIDE 0.9% 1,000 ML IV STA (18:39)
[2019-04-14] MEDS ORDERED: ACTIVATED CHARCOAL 50 GM/240 ML BOTTLE NG-TUBE STA (18:39)
--- NOTE | 2019-04-14 19:14 | ED ---
Overdose HPI - General Chief Complaint: Overdose Stated Complaint: Mental Health Time Seen by Provider: 04/14/19 18:39 Source: patient, RN notes reviewed, old records reviewed Mode of arrival: ambulatory Limitations: no limitations - History of Present Illness Initial Comments: This is a 33-year-old female the ER for evaluation. Patient resents today for evaluation regards to psychiatric illness. Patient has history of recent depression, denies recent drug or alcohol abuse she did take an overdose on her antidepressants, patient sent in by family doctor for evaluation or psychiatric team and admission for psychiatric evaluation and treatment. Patient denies illicit drug or alcohol abuse MD Complaint: intentional overdose -: hour(s) Intent: suicide attempt How Overdose Was Discovered: called family/friend, called counselor (Visiting her physician) Associated Symptoms: depression Treatments Prior to Arrival: none - Related Data Home Medications Medication Instructions Recorded Confirmed Acetaminophen Tab [Tylenol] 325 - 650 mg PO Q4H PRN 07/23/17 04/14/19 Aspirin [Adult Low Dose Aspirin EC] 81 mg PO DAILY 07/23/17 04/14/19 Multivitamins, Thera [Multivitamin 1 tab PO DAILY 07/23/17 04/14/19 (formulary)] Ascorbic Acid [Vitamin C] 500 mg PO DAILY 05/10/18 04/14/19 Cholecalciferol [Vitamin D3 (25 2,000 unit PO DAILY 05/10/18 04/14/19 Mcg = 1000 Iu)] Ferrous Sulfate [Iron (65 MG 325 mg PO DAILY 05/10/18 04/14/19 Elemental)] FLUoxetine HCL [PROzac] 20 mg PO DAILY 04/14/19 04/14/19 Ibuprofen [Motrin Ib] 200 mg PO Q4H PRN 04/14/19 04/14/19 SUMAtriptan SUCCINATE [Imitrex] 25 mg PO DAILY PRN 04/14/19 04/14/19 Allergies Allergy/AdvReac Type Severity Reaction Status Date / Time clindamycin Allergy Intermediate Rash/Hives Verified 04/14/19 19:20 Review of Systems ROS Statement: Those systems with pertinent positive or pertinent negative responses have been documented in the HPI. ROS Other: All systems not noted in ROS Statement are negative. Past Medical History Past Medical History: GERD/Reflux Additional Past Medical History / Comment(s): hx of abnormal pap, hx of migraines, abnormal heart beat. stress test 2013. History of Any Multi-Drug Resistant Organisms: None Reported Past Surgical History: Orthopedic Surgery, Uterine Ablation Additional Past Surgical History / Comment(s): LEEP PROCEDURE PREVIOUS Past Anesthesia/Blood Transfusion Reactions: No Reported Reaction Past Psychological History: Anxiety, Depression Smoking Status: Former smoker Past Alcohol Use History: Occasional Past Drug Use History: None Reported - Past Family History Father Family Medical History: Cancer Additional Family Medical History / Comment(s): COLON General Exam Limitations: no limitations General appearance: alert, in no apparent distress Head exam: Present: atraumatic, normocephalic, normal inspection Eye exam: Present: normal appearance, PERRL, EOMI. Absent: scleral icterus, conjunctival injection, periorbital swelling ENT exam: Present: normal exam, mucous membranes moist Neck exam: Present: normal inspection. Absent: tenderness, meningismus, lymphadenopathy Respiratory exam: Present: normal lung sounds bilaterally. Absent: respiratory distress, wheezes, rales, rhonchi, stridor Cardiovascular Exam: Present: regular rate, normal rhythm, normal heart sounds. Absent: systolic murmur, diastolic murmur, rubs, gallop, clicks GI/Abdominal exam: Present: soft, normal bowel sounds. Absent: distended, tenderness, guarding, rebound, rigid Extremities exam: Present: normal inspection, full ROM, normal capillary refill. Absent: tenderness, pedal edema, joint swelling, calf tenderness Back exam: Present: normal inspection Neurological exam: Present: alert, oriented X3, CN II-XII intact Psychiatric exam: Present: normal affect, normal mood Skin exam: Present: warm, dry, intact, normal color. Absent: rash Course Vital Signs 04/14/19 04/14/19 18:32 20:00 Temperature 98.3 F 99 F Pulse Rate 73 65 Respiratory 16 18 Rate Blood Pressure 130/69 128/77 O2 Sat by Pulse 94 L 99 Oximetry - Reevaluation(s) Reevaluation #1: 04/14/19 21:31 Medical records reviewed, lab tests are reviewed and patient's medically clear for psychiatric evaluation Medical Decision Making - Medical Decision Making 53 female the ER for evaluation of psychiatric illness, patient will be admitted for psychiatric evaluation and treatment - Lab Data Result diagrams: 04/14/19 19:07 04/14/19 19:07 Lab Results 04/14/19 04/14/19 04/14/19 Range/Units 19:07 19:07 19:07 WBC (3.8-10.6) k/uL RBC (3.80-5.40) m/uL Hgb (11.4-16.0) gm/dL Hct (34.0-46.0) % MCV (80.0-100.0) fL MCH (25.0-35.0) pg MCHC (31.0-37.0) g/dL RDW (11.5-15.5) % Plt Count (150-450) k/uL Neutrophils % % Lymphocytes % % Monocytes % % Eosinophils % % Basophils % % Neutrophils # (1.3-7.7) k/uL Lymphocytes # (1.0-4.8) k/uL Monocytes # (0-1.0) k/uL Eosinophils # (0-0.7) k/uL Basophils # (0-0.2) k/uL PT (9.0-12.0) sec INR (<1.2) Sodium 142 (137-145) mmol/L Potassium 4.2 (3.5-5.1) mmol/L Chloride 107 (98-107) mmol/L Carbon Dioxide 26 (22-30) mmol/L Anion Gap 9 mmol/L BUN 17 (7-17) mg/dL Creatinine 0.67 (0.52-1.04) mg/dL Est GFR (CKD-EPI)AfAm >90 (>60 ml/min/1.73 sqM) Est GFR (CKD-EPI)NonAf >90 (>60 ml/min/1.73 sqM) Glucose 93 (74-99) mg/dL Calcium 10.9 H (8.4-10.2) mg/dL Total Bilirubin 0.3 (0.2-1.3) mg/dL Conjugated Bilirubin 0.0 (0.0-0.3) mg/dL Unconjugated Bilirubin 0.4 (0.0-1.1) mg/dL Delta Bilirubin -0.1 L (0.0-0.2) mg/dL AST 22 (14-36) U/L ALT 19 (9-52) U/L Alkaline Phosphatase 46 (38-126) U/L Creatine Kinase 66 (30-135) U/L Total Protein 7.4 (6.3-8.2) g/dL Albumin 4.6 (3.5-5.0) g/dL Urine HCG, Qual Not Detected (Not Detectd) Salicylates <1.0 mg/dL Urine Opiates Screen Not Detected (NotDetected) Ur Oxycodone Screen Not Detected (NotDetected) Urine Methadone Screen Not Detected (NotDetected) Ur Propoxyphene Screen Not Detected (NotDetected) Acetaminophen <10.0 ug/mL Ur Barbiturates Screen Not Detected (NotDetected) U Tricyclic Antidepress Not Detected (NotDetected) Ur Phencyclidine Scrn Not Detected (NotDetected) Ur Amphetamines Screen Not Detected (NotDetected) U Methamphetamines Scrn Not Detected (NotDetected) U Benzodiazepines Scrn Detected H (NotDetected) Urine Cocaine Screen Not Detected (NotDetected) U Marijuana (THC) Screen Not Detected (NotDetected) Serum Alcohol <10 mg/dL 04/14/19 04/14/19 Range/Units 19:07 19:07 WBC 8.1 (3.8-10.6) k/uL RBC 4.88 (3.80-5.40) m/uL Hgb 14.6 (11.4-16.0) gm/dL Hct 44.1 (34.0-46.0) % MCV 90.4 (80.0-100.0) fL MCH 29.8 (25.0-35.0) pg MCHC 33.0 (31.0-37.0) g/dL RDW 13.0 (11.5-15.5) % Plt Count 325 (150-450) k/uL Neutrophils % 58 % Lymphocytes % 30 % Monocytes % 5 % Eosinophils % 5 % Basophils % 1 % Neutrophils # 4.7 (1.3-7.7) k/uL Lymphocytes # 2.4 (1.0-4.8) k/uL Monocytes # 0.4 (0-1.0) k/uL Eosinophils # 0.4 (0-0.7) k/uL Basophils # 0.1 (0-0.2) k/uL PT 11.0 (9.0-12.0) sec INR 1.0 (<1.2) Sodium (137-145) mmol/L Potassium (3.5-5.1) mmol/L Chloride (98-107) mmol/L Carbon Dioxide (22-30) mmol/L Anion Gap mmol/L BUN (7-17) mg/dL Creatinine (0.52-1.04) mg/dL Est GFR (CKD-EPI)AfAm (>60 ml/min/1.73 sqM) Est GFR (CKD-EPI)NonAf (>60 ml/min/1.73 sqM) Glucose (74-99) mg/dL Calcium (8.4-10.2) mg/dL Total Bilirubin (0.2-1.3) mg/dL Conjugated Bilirubin (0.0-0.3) mg/dL Unconjugated Bilirubin (0.0-1.1) mg/dL Delta Bilirubin (0.0-0.2) mg/dL AST (14-36) U/L ALT (9-52) U/L Alkaline Phosphatase (38-126) U/L Creatine Kinase (30-135) U/L Total Protein (6.3-8.2) g/dL Albumin (3.5-5.0) g/dL Urine HCG, Qual (Not Detectd) Salicylates mg/dL Urine Opiates Screen (NotDetected) Ur Oxycodone Screen (NotDetected) Urine Methadone Screen (NotDetected) Ur Propoxyphene Screen (NotDetected) Acetaminophen ug/mL Ur Barbiturates Screen (NotDetected) U Tricyclic Antidepress (NotDetected) Ur Phencyclidine Scrn (NotDetected) Ur Amphetamines Screen (NotDetected) U Methamphetamines Scrn (NotDetected) U Benzodiazepines Scrn (NotDetected) Urine Cocaine Screen (NotDetected) U Marijuana (THC) Screen (NotDetected) Serum Alcohol mg/dL - EKG Data -: EKG Interpreted by Me (EKG shows sinus bradycardia rate of 56, NC 194, QRS 86, QTc 391) Disposition Clinical Impression: Drug overdose, Depression Disposition: TRANSFER TO PSYCH HOSP/UNIT Condition: Good Is patient prescribed a controlled substance at d/c from ED?: No Referrals: Maliha Gonzalez MD [Primary Care Provider] - 1-2 days
[2019-04-14 19:20] LABS: Basophils # (A) 0.1 k/uL (0-0.2); Basophils % (A) 1 %; Eosinophils # (A) 0.4 k/uL (0-0.7); Eosinophils % (A) 5 %; HCT 44.1 % (34.0-46.0); HGB 14.6 gm/dL (11.4-16.0); Lymphocytes # (A) 2.4 k/uL (1.0-4.8); Lymphocytes % (A) 30 %; MCH 29.8 pg (25.0-35.0); MCV 90.4 fL (80.0-100.0); Mean Platelet Volume 6.3; Monocytes # (A) 0.4 k/uL (0-1.0); Monocytes % (A) 5 %; Neutrophils # (A) 4.7 k/uL (1.3-7.7); Neutrophils % (A) 58 %; Platelet Count 325 k/uL (150-450); RBC 4.88 m/uL (3.80-5.40); WBC 8.1 k/uL (3.8-10.6)
[2019-04-14 19:29] LABS: ALT 19 U/L (9-52); AST 22 U/L (14-36); Acetaminophen <10.0 ug/mL; African American GFR (CKD) >90 (>60 ml/min/1.73 sqM); Albumin 4.6 g/dL (3.5-5.0); Alcohol <10 mg/dL; Alkaline Phosphatase 46 U/L (38-126); Anion Gap 9 mmol/L; Bilirubin, Delta -0.1 mg/dL (0.0-0.2); Bilirubin,Unconjugated 0.4 mg/dL (0.0-1.1); Blood Urea Nitrogen 17 mg/dL (7-17); Calcium 10.9 mg/dL (8.4-10.2); Carbon Dioxide 26 mmol/L (22-30); Chloride 107 mmol/L (98-107); Creatine Kinase 66 U/L (30-135); Glucose 93 mg/dL (74-99); Potassium 4.2 mmol/L (3.5-5.1); Salicylate <1.0 mg/dL; Sodium 142 mmol/L (137-145); Total Bilirubin 0.3 mg/dL (0.2-1.3); Total Protein 7.4 g/dL (6.3-8.2)
[2019-04-14 19:37] LABS: Amphetamine Screen,Urine Not Detected (NotDetected); Barbiturate Screen,Urine Not Detected (NotDetected); Benzodiazepines Screen,Urine Detected (NotDetected); Cocaine Screen,Urine Not Detected (NotDetected); Methadone Screen, Urine Not Detected (NotDetected); Opiate Screen,Urine Not Detected (NotDetected); Oxycodone Screen, Urine Not Detected (NotDetected); Phencyclidine Screen,Urine Not Detected (NotDetected); Tricyclic Antidepressant,Urine Not Detected (NotDetected); Urn Cannabinoid Scrn Not Detected (NotDetected)
[2019-04-14] MEDS ORDERED: MAG HYDROX/AL HYDROX/SIMETH 30 ML CUP PO PRN (21:41)
[2019-04-14] MEDS ORDERED: LORazepam 1 MG TAB PO PRN (21:41)
[2019-04-14] MEDS ORDERED: MAGNESIUM HYDROXIDE 2,400 MG/10 ML CUP PO PRN (21:41)
[2019-04-14 23:37] VITALS: RESP 16; BMI 28.6
[2019-04-15] MEDS: ACETAMINOPHEN TAB 325 MG TAB PO PRN ×2 (03:19→08:58)
--- NOTE | 2019-04-15 06:58 | P.HPMEDMHU ---
History of Present Illness H&P Date: 04/15/19 Chief Complaint: Consult for MHU HPI The patient is a 53-year-old female that presented to the ER and is being admitted to the acute inpatient psychiatry unit for apparent intentional overdose with Prozac in a suicide attempt. Apparently the patient has been feeling depressed and down for the last several months, she has had inability to concentrate at work affecting her work performance. She reports now that she is being observed constantly at work by her boss which makes her anxiety worse. The patient last evening attempted to take 1520 mg tablets of Prozac, the patient was recently diagnosed with depression and has been on therapy for approximately 11 days. In the ER the patient was given activated charcoal, without any rigidity reported. The patient cites increasing stressors at work, and reports that she doesn't think anybody would miss her she has no kids her grandchildren. She also reports some depression due to the passing of her mother in July from Alzheimer's disease. Past Medical History Past Medical History: GERD/Reflux Additional Past Medical History / Comment(s): hx of abnormal pap, hx of migraines, abnormal heart beat. stress test 2012. History of Any Multi-Drug Resistant Organisms: None Reported Past Surgical History: Orthopedic Surgery, Uterine Ablation Additional Past Surgical History / Comment(s): LEEP PROCEDURE PREVIOUS Past Anesthesia/Blood Transfusion Reactions: No Reported Reaction Smoking Status: Former smoker - Past Family History Father Family Medical History: Cancer Additional Family Medical History / Comment(s): COLON Medications and Allergies Home Medications Medication Instructions Recorded Confirmed Type Acetaminophen Tab [Tylenol] 325 - 650 mg PO Q4H PRN 07/23/17 04/14/19 History Aspirin [Adult Low Dose Aspirin EC] 81 mg PO DAILY 07/23/17 04/14/19 History Multivitamins, Thera [Multivitamin 1 tab PO DAILY 07/23/17 04/14/19 History (formulary)] Ascorbic Acid [Vitamin C] 500 mg PO DAILY 05/10/18 04/14/19 History Cholecalciferol [Vitamin D3 (25 2,000 unit PO DAILY 05/10/18 04/14/19 History Mcg = 1000 Iu)] Ferrous Sulfate [Iron (65 MG 325 mg PO DAILY 05/10/18 04/14/19 History Elemental)] FLUoxetine HCL [PROzac] 20 mg PO DAILY 04/14/19 04/14/19 History Ibuprofen [Motrin Ib] 200 mg PO Q4H PRN 04/14/19 04/14/19 History SUMAtriptan SUCCINATE [Imitrex] 25 mg PO DAILY PRN 04/14/19 04/14/19 History Allergies Allergy/AdvReac Type Severity Reaction Status Date / Time clindamycin Allergy Intermediate Rash/Hives Verified 04/14/19 19:20 Physical Exam Vitals: Vital Signs Temp Pulse Pulse Resp BP BP Pulse Ox 04/15/19 05:43 98.3 F 74 16 126/69 04/14/19 22:00 97.4 F L 81 16 126/74 04/14/19 21:53 98 F 80 18 128/70 100 04/14/19 20:00 99 F 65 18 128/77 99 04/14/19 18:32 98.3 F 73 16 130/69 94 L Intake and Output 04/14/19 04/14/19 04/15/19 14:59 22:59 06:59 Other: Weight 77.111 kg Constitutional: No acute distress, conversant, pleasant Eyes: Anicteric sclerae, moist conjunctiva, no lid-lag, PERRLA ENMT: NC/AT,Oropharynx clear, no erythema, exudates Neck:Supple, FROM, no masses, or JVD, No carotid bruits; No thyromegaly Lungs: Clear to auscultation, Clear to percussion, Normal respiratory effort, no accessory muscle use Cardiovascular: Heart regular in rate and rhythm, No murmurs, gallops, or rubs no peripheral edema Abdominal: Soft Nontender, nom distended, no guarding, no rebound or rigidity, Normoactive bowel sounds No hepatomegaly, No splenomegaly, No palpable mass No abdominal wall hernia noted Skin: Normal temperature, tone, texture, turgor, No induration No subcutaneous nodules, No rash, lesions, No ulcers Extremities:No digital cyanosis No clubbing, Pedal pulses intact and symmetrical Radial pulses intact and symmetrical Normal gait and station, No calf tenderness Psychiatric: Alert and oriented to person, place and time, Appropriate affect Intact judgement Neuro: Muscles Strength 5/5 in all 4 extremities, Sensation to light touch grossly present throughout, Cranial nerves II-XII grossly intact. No focal sensory deficits Cranial Nerve Examination - Cranial Nerves Cranial Nerve II- Optic: Intact Cranial Nerve III- Oculomotor: Intact Cranial Nerve IV- Trochlear: Intact Cranial Nerve V- Trigeminal: Intact Cranial Nerve - Abducens: Intact Cranial Nerve VII- Facial: Intact Cranial Nerve VIII- Auditory: Intact Cranial Nerve IX- Glossopharyngeal: Intact Cranial Nerve X- Vagus: Intact Cranial Nerve XI- Accessory: Intact Cranial Nerve XII- Hypoglossal: Intact Results CBC & Chem 7: 04/14/19 19:07 04/14/19 19:07 Labs: Abnormal Lab Results - Last 24 Hours (Table) 04/14/19 04/14/19 Range/Units 19:07 19:07 Calcium 10.9 H (8.4-10.2) mg/dL Delta Bilirubin -0.1 L (0.0-0.2) mg/dL U Benzodiazepines Scrn Detected H (NotDetected) Thrombosis Risk Factor Assmnt - Choose All That Apply Each Factor Represents 1 point: Age 41-60 years Other Risk Factors: No Other congenital or acquired thrombophilia - If yes, enter type in comment: No Thrombosis Risk Factor Assessment Total Risk Factor Score: 1 Thrombosis Risk Factor Assessment Level: Low Risk Assessment and Plan (1) GERD (gastroesophageal reflux disease) Current Visit: Yes Status: Acute Code(s): K21.9 - GASTRO-ESOPHAGEAL REFLUX DISEASE WITHOUT ESOPHAGITIS SNOMED Code(s): 777435230 (2) Migraines Current Visit: Yes Status: Acute Code(s): G43.909 - MIGRAINE, UNSP, NOT INTRACTABLE, WITHOUT STATUS MIGRAINOSUS SNOMED Code(s): 37625848 (3) Depression Current Visit: Yes Status: Acute Code(s): F32.9 - MAJOR DEPRESSIVE DISORDER, SINGLE EPISODE, UNSPECIFIED SNOMED Code(s): 42114255 (4) Drug overdose Current Visit: Yes Status: Acute Code(s): T50.901A - POISONING BY UNSP DRUG/MEDS/BIOL SUBST, ACCIDENTAL, INIT SNOMED Code(s): 98661136 Plan: The patient is admitted to the acute inpatient psychiatry team with severe depression in the setting of suicidal attempt with intentional drug overdose after taking 15 20mg tablets of Prozac. We'll defer to the acute inpatient psychiatric team regarding ongoing pharmacological therapy and ongoing cognitive behavioral therapy. Currently the patient is hemodynamically stable chest history of migraines and neck pain and GERD. She was given Tylenol for headache earlier which no relief and reports that usually takes Excedrin Migraine with good results.
[2019-04-15] MEDS ORDERED: IBUPROFEN 200 MG TAB PO PRN (06:59)
[2019-04-15] MEDS ORDERED: SUMAtriptan SUCCINATE 25 MG TAB PO PRN (06:59)
[2019-04-15] MEDS ORDERED: ASPIRIN-ACET-CAFF 250-250-65MG 1 EACH TAB PO PRN (07:07)
[2019-04-15] MEDS: CHOLECALCIFEROL 1,000 UNIT TAB PO SCH (08:55)
[2019-04-15] MEDS: ASPIRIN 81 MG PO SCH (08:55)
[2019-04-15] MEDS: FERROUS SULFATE 325 MG TAB PO SCH (08:55)
[2019-04-15] MEDS: ASCORBIC ACID 500 MG TAB PO SCH (08:55)
[2019-04-15] MEDS: MULTIVITAMINS, THERA 1 EACH TAB PO SCH (08:56)
[2019-04-15 09:22] LABS: Basophils # (A) 0.1 k/uL (0-0.2); Basophils % (A) 1 %; Eosinophils # (A) 0.4 k/uL (0-0.7); Eosinophils % (A) 5 %; HCT 43.3 % (34.0-46.0); Lymphocytes # (A) 2.1 k/uL (1.0-4.8); Lymphocytes % (A) 26 %; MCHC 32.4 g/dL (31.0-37.0); MCV 92.7 fL (80.0-100.0); Mean Platelet Volume 6.3; Monocytes # (A) 0.3 k/uL (0-1.0); Monocytes % (A) 3 %; Neutrophils % (A) 64 %; Platelet Count 291 k/uL (150-450); RBC 4.67 m/uL (3.80-5.40); WBC 7.8 k/uL (3.8-10.6)
[2019-04-15 09:36] LABS: ALT 20 U/L (9-52); AST 21 U/L (14-36); African American GFR (CKD) >90 (>60 ml/min/1.73 sqM); Albumin 4.4 g/dL (3.5-5.0); Alkaline Phosphatase 42 U/L (38-126); Anion Gap 8 mmol/L; Blood Urea Nitrogen 16 mg/dL (7-17); Calcium 10.8 mg/dL (8.4-10.2); Carbon Dioxide 27 mmol/L (22-30); Chloride 105 mmol/L (98-107); Cholesterol 181 mg/dL (<200); Glucose 79 mg/dL (74-99); HDL Cholesterol 52 mg/dL (40-60); LDL Cholesterol,Calculated 96 mg/dL (0-99); Potassium 5.1 mmol/L (3.5-5.1); Sodium 140 mmol/L (137-145); Total Bilirubin 0.4 mg/dL (0.2-1.3); Total Protein 7.1 g/dL (6.3-8.2); Triglycerides 167 mg/dL (<150)
[2019-04-15] MEDS: SERTRALINE 50 MG TAB PO SCH (14:38)
--- NOTE | 2019-04-15 15:52 | P.HP ---
Psychiatric H&P - . H&P Date: 04/15/19 History & Physical: Allergies Allergy/AdvReac Type Severity Reaction Status Date / Time clindamycin Allergy Intermediate Rash/Hives Verified 04/14/19 19:20 Vital Signs Temp 98.3 F 04/15/19 05:43 Pulse 74 04/15/19 05:43 Resp 16 04/15/19 05:43 BP 126/69 04/15/19 05:43 Pulse Ox 100 04/14/19 21:53 Intake & Output 04/14/19 04/15/19 04/15/19 18:59 06:59 18:59 Weight 77.111 kg Laboratory Last Values WBC 7.8 k/uL (3.8-10.6) 04/15/19 09:00 RBC 4.67 m/uL (3.80-5.40) 04/15/19 09:00 Hgb 14.0 gm/dL (11.4-16.0) 04/15/19 09:00 Hct 43.3 % (34.0-46.0) 04/15/19 09:00 MCV 92.7 fL (80.0-100.0) 04/15/19 09:00 MCH 30.0 pg (25.0-35.0) 04/15/19 09:00 MCHC 32.4 g/dL (31.0-37.0) 04/15/19 09:00 RDW 13.0 % (11.5-15.5) 04/15/19 09:00 Plt Count 291 k/uL (150-450) 04/15/19 09:00 Neutrophils % 64 % 04/15/19 09:00 Lymphocytes % 26 % 04/15/19 09:00 Monocytes % 3 % 04/15/19 09:00 Eosinophils % 5 % 04/15/19 09:00 Basophils % 1 % 04/15/19 09:00 Neutrophils # 5.0 k/uL (1.3-7.7) 04/15/19 09:00 Lymphocytes # 2.1 k/uL (1.0-4.8) 04/15/19 09:00 Monocytes # 0.3 k/uL (0-1.0) 04/15/19 09:00 Eosinophils # 0.4 k/uL (0-0.7) 04/15/19 09:00 Basophils # 0.1 k/uL (0-0.2) 04/15/19 09:00 PT 11.0 sec (9.0-12.0) 04/14/19 19:07 INR 1.0 (<1.2) 04/14/19 19:07 Sodium 140 mmol/L (137-145) 04/15/19 09:00 Potassium 5.1 mmol/L (3.5-5.1) 04/15/19 09:00 Chloride 105 mmol/L (98-107) 04/15/19 09:00 Carbon Dioxide 27 mmol/L (22-30) 04/15/19 09:00 Anion Gap 8 mmol/L 04/15/19 09:00 BUN 16 mg/dL (7-17) 04/15/19 09:00 Creatinine 0.70 mg/dL (0.52-1.04) 04/15/19 09:00 Est GFR (CKD-EPI)AfAm >90 (>60 ml/min/1.73 sqM) 04/15/19 09:00 Est GFR (CKD-EPI)NonAf >90 (>60 ml/min/1.73 sqM) 04/15/19 09:00 Glucose 79 mg/dL (74-99) 04/15/19 09:00 Calcium 10.8 mg/dL (8.4-10.2) H 04/15/19 09:00 Total Bilirubin 0.4 mg/dL (0.2-1.3) 04/15/19 09:00 Conjugated Bilirubin 0.0 mg/dL (0.0-0.3) 04/14/19 19:07 Unconjugated Bilirubin 0.4 mg/dL (0.0-1.1) 04/14/19 19:07 Delta Bilirubin -0.1 mg/dL (0.0-0.2) L 04/14/19 19:07 AST 21 U/L (14-36) 04/15/19 09:00 ALT 20 U/L (9-52) 04/15/19 09:00 Alkaline Phosphatase 42 U/L (38-126) 04/15/19 09:00 Creatine Kinase 66 U/L (30-135) 04/14/19 19:07 Total Protein 7.1 g/dL (6.3-8.2) 04/15/19 09:00 Albumin 4.4 g/dL (3.5-5.0) 04/15/19 09:00 Triglycerides 167 mg/dL (<150) H 04/15/19 09:00 Cholesterol 181 mg/dL (<200) 04/15/19 09:00 LDL Cholesterol, Calc 96 mg/dL (0-99) 04/15/19 09:00 HDL Cholesterol 52 mg/dL (40-60) 04/15/19 09:00 TSH 2.190 mIU/L (0.465-4.680) 04/15/19 09:00 Urine HCG, Qual Not Detected (Not Detectd) 04/14/19 19:07 Salicylates <1.0 mg/dL 04/14/19 19:07 Urine Opiates Screen Not Detected (NotDetected) 04/14/19 19:07 Ur Oxycodone Screen Not Detected (NotDetected) 04/14/19 19:07 Urine Methadone Screen Not Detected (NotDetected) 04/14/19 19:07 Ur Propoxyphene Screen Not Detected (NotDetected) 04/14/19 19:07 Acetaminophen <10.0 ug/mL 04/14/19 19:07 Ur Barbiturates Screen Not Detected (NotDetected) 04/14/19 19:07 U Tricyclic Antidepress Not Detected (NotDetected) 04/14/19 19:07 Ur Phencyclidine Scrn Not Detected (NotDetected) 04/14/19 19:07 Ur Amphetamines Screen Not Detected (NotDetected) 04/14/19 19:07 U Methamphetamines Scrn Not Detected (NotDetected) 04/14/19 19:07 U Benzodiazepines Scrn Detected (NotDetected) H 04/14/19 19:07 Urine Cocaine Screen Not Detected (NotDetected) 04/14/19 19:07 U Marijuana (THC) Screen Not Detected (NotDetected) 04/14/19 19:07 Serum Alcohol <10 mg/dL 04/14/19 19:07 04/15/19 15:37 IDENTIFYING DATA: Patient is a 53-year-old female who lives in a house alone and lives part-time with her boyfriend, no kids, and 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 HPI: Patient presented to the hospital after an overdose of 15 Prozac tablets in an attempt to end her life along with increasing depression, and stress related to her work and her mother passing away this year. Patient states that she has been suffering from stressors mainly related to her job in the past few months including difficulty focusing at work, and the addition of more duties for her at work. She states that she has been suspended from her job 2 times in the past for not performing well and has been smoking 2 by managers for this. They state that they will fire her if she continues to perform poorly has been causing her significant stress. Patient also spoke of suffering a loss in her family when her mother in July of last year and describes having to take care of her for 8-10 years due to her Alzheimer's. She states that she feels hopeless and depressed and has not gone over her mother passing away. She states that since January of this past year her symptoms of depression and hopelessness have been increasing after Mother's Day. She claims that she was prescribed Prozac 20 mg tablets by her PCP and began taking them 11 days ago and noticed that they were not helping her. She stated that she has been having increasing suicidal ideations with a plan to overdose and states that in the morning after a shower she decided she wanted to end her life. She claims that she went to the kitchen and nobody was home and took 12 of the tablets claiming "I thought this would be enough to end my life" and impulsively took the pills and went to go lay down. Patient states that she does not regret it and did not go to sleep either however her mind is racing. She then woke up around 3 hours later and then talk 3 more tablets and then began feeling dizzy. She then states that she set her alarm to go to her primary care doctor appointment at 5 so she went to that appointment and then informed her doctor of what she did and then was sent to the hospital. She claims that she has been having poor sleep at night and racing thoughts, okay energy and fair appetite. At this time patient denies any current suicidal ideations intent or plan. She states that she has some anxiety when she thinks about her job. She denies any homicidal ideations intent or plan and denies any auditory or visual hallucinations. Patient denies any flight of ideas racing thoughts and increased in goal directed behavior. Patient denies the use of any other recreational drugs including marijuana and denies any nicotine use. PAST PSYCHIATRIC HISTORY: Patient denies any previous psychiatric admissions. She claims that she has been tried on Prozac, Paxil and citalopram in the past and has only had some improvement in her mood with citalopram. Patient has not seen a psychiatrist before. Patient denies any previous suicide attempts. PMH: Neck problems ALLERGIES: Clindamycin CHEMICAL DEPENDENCY HISTORY: Denies FAMILY PSYCHIATRIC/SUBSTANCE USE HISTORY: Denies SOCIAL HISTORY: Patient grew up in [place] then moved to [place] and recently moved back to [place] where she now lives in a house part-time and also lives with her boyfriend who is supportive. 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 She completed high school and got a Associates degree MENTAL STATUS EXAM: General Appearance: Patient appears to be stated age is alert, pleasant, and cooperative. Patient was in hospital gown and had marginal grooming and hygiene. Behavior: Patient is calmly seated without any agitated behavior. Speech: Patient's speech is fluent and nonpressured. Mood/Affect: Patient reports their mood is depressed and affect is congruent and constricted. Suicidality/Homicidality: Patient denies having any suicidal or homicidal ideation intent or plan. Perceptions: Patient denies any auditory or visual hallucinations. Though content/process: There is no evidence of any delusional thought content and thought process is linear and goal-directed. Memory and concentration: AOX3, grossly intact for the purposes of this session. Can spell "WORLD" backwards Judgment and insight: Poor STRENGTHS/WEAKNESSES: Treated and has a good support system INTELLECT: Average IMPRESSIONS: Major depressive disorder, moderate-severe PLAN: -Patient is admitted under voluntary status to MHU for stabilization of psychiatric symptoms and safety. Voluntary form was signed and placed in chart. -Will start patient on Zoloft 50 mg daily with 1 dose now for mood. Patient will be titrated up to 100 mg on Thursday. Patient will also be started on mirtazapine 15 mg daily at bedtime for mood and insomnia. -Ativan PRN for agitation/aggression -Patient was informed of the risks, benefits and side effects of the medication and patient verbally consented to taking the medications. Patient signed med consent form and was placed in chart. -NRT was offered and patient declined as patient does not smoke. -SW on board for discharge planning
[2019-04-15 17:22] LABS: Urine Alcohol Negative (Negative); Urine Barbiturate Negative (Negative); Urine Cocaine Negative (Negative); Urine Methadone Negative (Negative); Urine Opiates Negative (Negative); Urine Phencyclidine Negative (Negative)
[2019-04-15 20:27] LABS: Hemoglobin A1C 5.3 % (4.0-6.0)
[2019-04-15] MEDS ORDERED: MIRTAZAPINE 15 MG TAB PO SCH (21:00)
[2019-04-16] MEDS: FERROUS SULFATE 325 MG TAB PO SCH (08:46)
[2019-04-16] MEDS: ASCORBIC ACID 500 MG TAB PO SCH (08:46)
[2019-04-16] MEDS: SERTRALINE 50 MG TAB PO SCH (08:46)
[2019-04-16] MEDS: ASPIRIN 81 MG PO SCH (08:46)
[2019-04-16] MEDS: CHOLECALCIFEROL 1,000 UNIT TAB PO SCH (08:46)
[2019-04-16] MEDS: MULTIVITAMINS, THERA 1 EACH TAB PO SCH (08:46)
--- NOTE | 2019-04-16 11:25 | P.PN ---
Progress Note - Text Interval history: The patient is found in group she follows me to an interview room. The patient was admitted for suicidal ideation after she attempted suicide with an overdose of Prozac. She states she has no suicidal thoughts now. She does feel that the group involvement here on the mental health unit is helpful. We reviewed her current medications. Her questions were answered. She is anticipating a visit from family this evening. She states that the Remeron was helpful for sleep but feels that it may have kept her sleep too long. We discussed reducing the dose. Mental status exam: The patient is alert she is dressed in her own clothing hygiene grooming is adequate. Speech is fluent spontaneous nonpressured. She has a constricted affect. She reports that her mood has improved. She is reporting no acute suicidal or homicidal ideation intent or plan. She is reporting no auditory or visual significant delusions. Thought process is linear she demonstrates no tangential thinking loose associations or flight of ideas. She is circumstantial at times. She demonstrates no verbal or physical aggressiveness. Insight and judgment improving. Impression/plan: Major depression, bereavement, the patient will continue on the Zoloft as written. It is scheduled to be increased to 100 mg tomorrow. We will reduce the Remeron to 7.5 mg at bedtime. We will monitor her for safety and encourage full participation in the milieu. Vital signs reviewed.
[2019-04-16] MEDS: MIRTAZAPINE 15 MG TAB PO SCH (21:04)
[2019-04-17] MEDS: ASCORBIC ACID 500 MG TAB PO SCH (08:38)
[2019-04-17] MEDS: ASPIRIN 81 MG PO SCH (08:38)
[2019-04-17] MEDS: FERROUS SULFATE 325 MG TAB PO SCH (08:38)
[2019-04-17] MEDS: MULTIVITAMINS, THERA 1 EACH TAB PO SCH (08:38)
[2019-04-17] MEDS: CHOLECALCIFEROL 1,000 UNIT TAB PO SCH (08:38)
[2019-04-17] MEDS: SERTRALINE 100 MG TAB PO SCH (08:38)
--- NOTE | 2019-04-17 08:38 | P.PN ---
Progress Note - Text Interval history: The patient is found in the hallway she follows me to an interview room. She reports her mood is better. He states that she no longer feels hopeless she has no suicidal thoughts. She had a good visit from family last evening. She found that with the reduction of the Remeron she wasn't as sleepy in the morning. She is tolerating the Zoloft without any reported side effects. Again we reviewed the psychotropic medications and her questions were answered. She has been attending groups. She slept last night she's been eating meals. She has been appropriately attending her ADLs. Mental status exam: The patient is alert she is dressed in her own clothing hygiene grooming are good. Eye contact is good. She is pleasant and cooperative. Speech is fluent spontaneous nonpressured. She reports no suicidal or homicidal ideation intent or plan. She demonstrates spontaneous future oriented thinking. She is endorsing no auditory or visual hallucinations or any specific delusions. There is no observed evidence of psychosis hypomania or rm. Insight and judgment improving. She is oriented to person place and date. She demonstrates no verbal or physical aggressiveness. Plan: Symptoms of depression improving, the patient will continue on her current psychotropic medications. She is encouraged to continue participating in groups. Vital signs reviewed. It appears that she is clinically stabilizing and most likely would be appropriate for discharge in the next 1-2 days. We will continue to monitor her for safety.
[2019-04-17 17:16] LABS: Appearance,Urine Clear (Clear); Bilirubin,Urine Negative (Negative); Blood,Urine Negative (Negative); Color,Urine Colorless; Glucose,Urine (UA) Negative (Negative); Ketones,Urine Negative (Negative); Leukocyte Esterase,Urine Negative (Negative); Nitrite,Urine Negative (Negative); Protein,Urine Negative (Negative); Specific Gravity,Urine 1.003 (1.001-1.035); Urobilinogen,Urine <2.0 mg/dL (<2.0)
[2019-04-17] MEDS: MIRTAZAPINE 15 MG TAB PO SCH (22:00)
[2019-04-18] MEDS: CHOLECALCIFEROL 1,000 UNIT TAB PO SCH (08:51)
[2019-04-18] MEDS: SERTRALINE 100 MG TAB PO SCH (08:51)
[2019-04-18] MEDS: ASCORBIC ACID 500 MG TAB PO SCH (08:51)
[2019-04-18] MEDS: FERROUS SULFATE 325 MG TAB PO SCH (08:52)
[2019-04-18] MEDS: ASPIRIN 81 MG PO SCH (08:52)
[2019-04-18] MEDS: MULTIVITAMINS, THERA 1 EACH TAB PO SCH (08:52)
--- NOTE | 2019-04-18 11:53 | P.PN ---
Progress Note - Text Progress Note Date: 04/18/19 Interval History: Patient was seen this morning in the hallways and was agreeable to speak in the common room. Patient appeared to be calm this morning and answered all questions appropriately. Patient states that her weekend was uneventful and she states she has been attempting to participate in groups more. She states that her Remeron was added to-dose for her and states that she overslept and was now cut back to 7.5 mg of mirtazapine at night and is doing much better. She claims that her mood is gradually improving and her anxiety is improving as well however she remains having excessive guilt about coming into the hospital and putting extra stress on her family. She states that she saw her brother and boyfriend over the weekend and states that they're supportive. She also claims that she would like to look for a new job and spoke of an interview she had prior to coming in the hospital and wanted to follow-up with it. At this time patient denies any suicidal or homical ideations, intent or plan. Patient denies any auditory, visual hallucinations and denies any paranoia or delusions. Patient denies any side effects from the medications and has been compliant with meds. Mental Status Exam: General Appearance: Patient appears to be stated age is alert, pleasant, and c ooperative. Hygiene and grooming improving Behavior: Patient is calmly seated without any agitated behavior. Speech: Patient's speech is fluent and nonpressured. Mood/Affect: Patient reports their mood is improving, affect is congruent and constricted. Suicidality/Homicidality: Patient denies having any suicidal or homicidal ideation intent or plan. Perceptions: Patient denies any auditory or visual hallucinations. Though content/process: There is no evidence of any delusional thought content and thought process is linear and goal-directed. Memory and concentration: AOX3, grossly intact for the purposes of this session Judgment and insight: Improving Assessment Major depressive disorder, moderate-severe. Plan: -Patient continues to meet criteria for inpatient psychiatric admission for symptom stabilization and safety. -Medications: Will continue Remeron 7.5 mg daily at bedtime for mood and sleep and also increase Zoloft 150 mg daily for mood and anxiety. -When necessary Ativan for agitation/aggression. -SW on board for discharge planning. Patient was encouraged to participate in groups and [facility] milieu.
[2019-04-18] MEDS: MIRTAZAPINE 15 MG TAB PO SCH (22:03)
[2019-04-19] MEDS: ASPIRIN 81 MG PO SCH (08:44)
[2019-04-19] MEDS: MULTIVITAMINS, THERA 1 EACH TAB PO SCH (08:44)
[2019-04-19] MEDS: FERROUS SULFATE 325 MG TAB PO SCH (08:44)
[2019-04-19] MEDS: ASCORBIC ACID 500 MG TAB PO SCH (08:44)
[2019-04-19] MEDS: CHOLECALCIFEROL 1,000 UNIT TAB PO SCH (08:44)
[2019-04-19] MEDS: SERTRALINE 50 MG TAB PO SCH (08:44)
--- NOTE | 2019-04-19 12:38 | P.PN ---
Progress Note - Text Progress Note Date: 04/19/19 Interval History: Patient was seen in the hallways and was agreeable to seek the investment underwriter in the o ffice. Patient states that she is gradually improving in mood and anxiety and claims that the suicidal thoughts and ideations have decreased. Patient appears to be more future oriented however is unsure about her job and discusses some of her future plans to relocate jobs. Patient states that she is attending to attend some groups and has found some of them helpful. She also claims that she is eating and sleeping throughout the night. Patient spoke about her worries about her boyfriend who is going to require surgery tomorrow and hopes to be discharged prior to the surgery. At this time patient denies any suicidal or homical ideations, intent or plan. Patient denies any auditory, visual hallucinations and denies any paranoia or delusions. Patient denies any side effects from the medications and has been compliant with meds. Mental Status Exam: General Appearance: Patient appears to be stated age is alert, pleasant, and cooperative. Hygiene and grooming improving Behavior: Patient is calmly seated without any agitated behavior. Speech: Patient's speech is fluent and nonpressured. Mood/Affect: Patient reports their mood is improving, affect is congruent and constricted. Suicidality/Homicidality: Patient denies having any suicidal or homicidal ideation intent or plan. Perceptions: Patient denies any auditory or visual hallucinations. Though content/process: There is no evidence of any delusional thought content and thought process is linear and goal-directed. Memory and concentration: AOX3, grossly intact for the purposes of this session Judgment and insight: Improving Assessment Major depressive disorder, moderate-severe. Plan: -Patient continues to meet criteria for inpatient psychiatric admission for symptom stabilization and safety. -Medications: Will continue Remeron 7.5 mg daily at bedtime for mood and sleep and also Zoloft 150 mg daily for mood and anxiety. -When necessary Ativan for agitation/aggression. -SW on board for discharge planning. Patient was encouraged to participate in groups and king milieu. -Patient likely discharge tomorrow morning back home.
[2019-04-19] MEDS: MIRTAZAPINE 15 MG TAB PO SCH (21:48)
[2019-04-20 07:00] VITALS: BP 127/67; PULSE 58; TEMP 97.7
[2019-04-20] MEDS: MULTIVITAMINS, THERA 1 EACH TAB PO SCH (08:25)
[2019-04-20] MEDS: ASPIRIN 81 MG PO SCH (08:26)
[2019-04-20] MEDS: SERTRALINE 50 MG TAB PO SCH (08:26)
[2019-04-20] MEDS: ASCORBIC ACID 500 MG TAB PO SCH (08:26)
[2019-04-20] MEDS: FERROUS SULFATE 325 MG TAB PO SCH (08:26)
[2019-04-20] MEDS: CHOLECALCIFEROL 1,000 UNIT TAB PO SCH (08:26)
--- NOTE | 2019-04-20 08:40 | P.DS ---
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 Patient presented to the hospital after an overdose of 15 Prozac tablets in an attempt to end her life along with increasing depression, and stress related to her work and her mother passing away this year. Patient states that she has been suffering from stressors mainly related to her job in the past few months including difficulty focusing at work, and the addition of more duties for her at work. She states that she has been suspended from her job 2 times in the past for not performing well and has been smoking 2 by managers for this. They state that they will fire her if she continues to perform poorly has been causing her significant stress. Patient also spoke of suffering a loss in her family when her mother in July of last year and describes having to take care of her for 8-10 years due to her Alzheimer's. She states that she feels hopeless and depressed and has not gone over her mother passing away. She states that since January of this past year her symptoms of depression and hopelessness have been increasing after Mother's Day. She claims that she was prescribed Prozac 20 mg tablets by her PCP and began taking them 11 days ago and noticed that they were not helping her. She stated that she has been having increasing suicidal ideations with a plan to overdose and states that in the morning after a shower she decided she wanted to end her life. She claims that she went to the kitchen and nobody was home and took 12 of the tablets claiming "I thought this would be enough to end my life" and impulsively took the pills and went to go lay down. Patient states that she does not regret it and did not go to sleep either however her mind is racing. She then woke up around 3 hours later and then talk 3 more tablets and then began feeling dizzy. She then states that she set her alarm to go to her primary care doctor appointment at 5 so she went to that appointment and then informed her doctor of what she did and then was sent to the hospital. She claims that she has been having poor sleep at night and racing thoughts, okay energy and fair appetite. At this time patient denies any current suicidal ideations intent or plan. She states that she has some anxiety when she thinks about her job. She denies any homicidal ideations intent or plan and denies any auditory or visual hallucinations. Patient denies any flight of ideas racing thoughts and increased in goal directed behavior. Patient denies the use of any other recreational drugs including marijuana and denies any nicotine use. Hospital course: Upon admission to the unit patient was isolative, depressed yet was directable and calm. Patient got along well with other patients on the unit and followed unit protocol. Patient was compliant with his medications and denied any side effects throughout his hospital course. Patient was started on Remeron 7.5 mg daily at bedtime for insomnia and mood and Zoloft 150 mg daily at bedtime for mood. Patient spoke of her stressors about her work, finances and losing her mother in July of last year and engaged in therapy both group and individual. Patient was also seen by medical team for history and physical exam. Throughout the course of the hospitalization patient gradually improved with regards to mood and became future oriented. On the day of discharge patient denied any suicidal or homicidal ideations intent or plan denied any auditory or visual hallucinations. Patient denied any paranoia and did not endorse any delusions. [Patient does not have a significant history of substance abuse however was counseled on abstaining from all substances including alcohol and marijuana.] [Patient was also counseled on the medications and need for regular compliance and was encouraged to follow-up with their outpatient appointment for mental health and also for primary care.] Mental status exam: General Appearance: [Patient appears to be stated age is alert, pleasant, and cooperative. Patient is in no acute distress and has fair hygiene and grooming] patient was wearing street clothing this morning. Behavior: [Patient is calmly seated without any agitated behavior.] Speech: Patient's speech is fluent and nonpressured. Mood/Affect: Patient reports their mood is fine, affect is congruent and euthymic. Suicidality/Homicidality: Patient denies having any suicidal or homicidal ideation intent or plan. Perceptions: Patient denies any auditory or visual hallucinations. Though content/process: There is no evidence of any delusional thought content and thought process is linear and goal-directed. Memory and concentration: AOX3, grossly intact for the purposes of this session. Can spell "WORLD" backwards correctly. Judgment and insight: fair Impression: Major depressive disorder, moderate-severe Plan: -Continue with discharge today as patient has improved and stabilized psychiatrically and no longer remains an imminent threat to herself and/or others. -Continue medications: Patient was advised to take Zoloft 150 mg daily at bedtime and Remeron 7.5 mg daily at bedtime for mood and insomnia. Discussed with patient the side effects of possible sedation and if need to be too discontinue Remeron at night however speak to her outpatient psychiatrist/ if she has any problems with the Zoloft. -Patient was counseled on the need for medication compliance and appropriate follow-up at mental health and also primary care for medical issues. Patient verbalized understanding and agreed. -Patient counseled on abstaining from recreational drugs and marijuana and alcohol. -Patient was instructed to return to the hospital or seek immediate medical care if their psychiatric or medical systems do worsen or reoccur. Allergies Allergy/AdvReac Type Severity Reaction Status Date / Time clindamycin Allergy Intermediate Rash/Hives Verified 04/14/19 19:20 Laboratory Results WBC 7.8 k/uL (3.8-10.6) 04/15/19 09:00 RBC 4.67 m/uL (3.80-5.40) 04/15/19 09:00 Hgb 14.0 gm/dL (11.4-16.0) 04/15/19 09:00 Hct 43.3 % (34.0-46.0) 04/15/19 09:00 MCV 92.7 fL (80.0-100.0) 04/15/19 09:00 MCH 30.0 pg (25.0-35.0) 04/15/19 09:00 MCHC 32.4 g/dL (31.0-37.0) 04/15/19 09:00 RDW 13.0 % (11.5-15.5) 04/15/19 09:00 Plt Count 291 k/uL (150-450) 04/15/19 09:00 Neutrophils % 64 % 04/15/19 09:00 Lymphocytes % 26 % 04/15/19 09:00 Monocytes % 3 % 04/15/19 09:00 Eosinophils % 5 % 04/15/19 09:00 Basophils % 1 % 04/15/19 09:00 Neutrophils # 5.0 k/uL (1.3-7.7) 04/15/19 09:00 Lymphocytes # 2.1 k/uL (1.0-4.8) 04/15/19 09:00 Monocytes # 0.3 k/uL (0-1.0) 04/15/19 09:00 Eosinophils # 0.4 k/uL (0-0.7) 04/15/19 09:00 Basophils # 0.1 k/uL (0-0.2) 04/15/19 09:00 PT 11.0 sec (9.0-12.0) 04/14/19 19:07 INR 1.0 (<1.2) 04/14/19 19:07 Sodium 140 mmol/L (137-145) 04/15/19 09:00 Potassium 5.1 mmol/L (3.5-5.1) 04/15/19 09:00 Chloride 105 mmol/L (98-107) 04/15/19 09:00 Carbon Dioxide 27 mmol/L (22-30) 04/15/19 09:00 Anion Gap 8 mmol/L 04/15/19 09:00 BUN 16 mg/dL (7-17) 04/15/19 09:00 Creatinine 0.70 mg/dL (0.52-1.04) 04/15/19 09:00 Est GFR (CKD-EPI)AfAm >90 (>60 ml/min/1.73 sqM) 04/15/19 09:00 Est GFR (CKD-EPI)NonAf >90 (>60 ml/min/1.73 sqM) 04/15/19 09:00 Glucose 79 mg/dL (74-99) 04/15/19 09:[address] Glu mg/dL 105 04/15/19 09:00 Hemoglobin A1c 5.3 % (4.0-6.0) 04/15/19 09:00 Calcium 10.8 mg/dL (8.4-10.2) H 04/15/19 09:00 Total Bilirubin 0.4 mg/dL (0.2-1.3) 04/15/19 09:00 Conjugated Bilirubin 0.0 mg/dL (0.0-0.3) 04/14/19 19:07 Unconjugated Bilirubin 0.4 mg/dL (0.0-1.1) 04/14/19 19:07 Delta Bilirubin -0.1 mg/dL (0.0-0.2) L 04/14/19 19:07 AST 21 U/L (14-36) 04/15/19 09:00 ALT 20 U/L (9-52) 04/15/19 09:00 Alkaline Phosphatase 42 U/L (38-126) 04/15/19 09:00 Creatine Kinase 66 U/L (30-135) 04/14/19 19:07 Total Protein 7.1 g/dL (6.3-8.2) 04/15/19 09:00 Albumin 4.4 g/dL (3.5-5.0) 04/15/19 09:00 Triglycerides 167 mg/dL (<150) H 04/15/19 09:00 Cholesterol 181 mg/dL (<200) 04/15/19 09:00 LDL Cholesterol, Calc 96 mg/dL (0-99) 04/15/19 09:00 HDL Cholesterol 52 mg/dL (40-60) 04/15/19 09:00 TSH 2.190 mIU/L (0.465-4.680) 04/15/19 09:00 Urine Color Colorless 04/17/19 17:06 Urine Appearance Clear (Clear) 04/17/19 17:06 Urine pH 6.0 (5.0-8.0) 04/17/19 17:06 Ur Specific Addis 1.003 (1.001-1.035) 04/17/19 17:06 Urine Protein Negative (Negative) 04/17/19 17:06 Urine Glucose (UA) Negative (Negative) 04/17/19 17:06 Urine Ketones Negative (Negative) 04/17/19 17:06 Urine Blood Negative (Negative) 04/17/19 17:06 Urine Nitrite Negative (Negative) 04/17/19 17:06 Urine Bilirubin Negative (Negative) 04/17/19 17:06 Urine Urobilinogen <2.0 mg/dL (<2.0) 04/17/19 17:06 Ur Leukocyte Esterase Negative (Negative) 04/17/19 17:06 Urine HCG, Qual Not Detected (Not Detectd) 04/14/19 19:07 Salicylates <1.0 mg/dL 04/14/19 19:07 Urine Opiates Screen Negative ng/mL (Negative) 04/14/19 19:07 Ur Oxycodone Screen Not Detected (NotDetected) 04/14/19 19:07 Urine Methadone Screen Negative ng/mL (Negative) 04/14/19 19:07 Ur Propoxyphene Screen Negative ng/mL (Negative) 04/14/19 19:07 Acetaminophen <10.0 ug/mL 04/14/19 19:07 Ur Barbiturates Screen Not Detected (NotDetected) 04/14/19 19:07 Urine Barbiturates Negative ng/mL (Negative) 04/14/19 19:07 U Tricyclic Antidepress Not Detected (NotDetected) 04/14/19 19:07 Ur Phencyclidine Scrn Negative ng/mL (Negative) 04/14/19 19:07 Ur Amphetamine Screen Negative ng/mL (Negative) 04/14/19 19:07 Ur Amphetamines Screen Not Detected (NotDetected) 04/14/19 19:07 U Methamphetamines Scrn Not Detected (NotDetected) 04/14/19 19:07 U Benzodiazepines Scrn Negative ng/mL (Negative) 04/14/19 19:07 Urine Cocaine Screen Negative ng/mL (Negative) 04/14/19 19:07 U Cannabinoids Screen Negative ng/mL (Negative) 04/14/19 19:07 U Marijuana (THC) Screen Not Detected (NotDetected) 04/14/19 19:07 Urine Alcohol Negative mg/dL (Negative) 04/14/19 19:07 Serum Alcohol <10 mg/dL 04/14/19 19:07 Vital Signs Temp 97.7 F 04/20/19 06:42 Pulse 58 L 04/20/19 06:42 Resp 16 04/20/19 06:42 BP 127/67 04/20/19 06:42 Pulse Ox 100 04/14/19 21:53 Patient Condition at Discharge: Stable Plan - Discharge Summary Discharge Rx Participant: No New Discharge Prescriptions: New Dcfgfyj-Fwyu-Gemc [id number] [Excedrin] 2 each PO Q6HR PRN tab PRN Reason: Headache Mirtazapine [Remeron] 7.5 mg PO HS PRN #15 tab PRN Reason: Insomnia Sertraline [Zoloft] 150 mg PO HS #45 tab Continue Multivitamins, Thera [Multivitamin (formulary)] 1 tab PO DAILY Aspirin [Adult Low Dose Aspirin EC] 81 mg PO DAILY Ferrous Sulfate [Iron (65 MG Elemental)] 325 mg PO DAILY Cholecalciferol [Vitamin D3 (25 Mcg = 1000 Iu)] 2,000 unit PO DAILY Ascorbic Acid [Vitamin C] 500 mg PO DAILY Ibuprofen [Motrin Ib] 200 mg PO Q4H PRN PRN Reason: Pain SUMAtriptan SUCCINATE [Imitrex] 25 mg PO DAILY PRN PRN Reason: Migraine Headache Discontinued Acetaminophen Tab [Tylenol] 325 - 650 mg PO Q4H PRN PRN Reason: Pain FLUoxetine HCL [PROzac] 20 mg PO DAILY Discharge Medication List Aspirin [Adult Low Dose Aspirin EC] 81 mg PO DAILY 07/23/17 [History] Multivitamins, Thera [Multivitamin (formulary)] 1 tab PO DAILY 07/23/17 [History] Ascorbic Acid [Vitamin C] 500 mg PO DAILY 05/10/18 [History] Cholecalciferol [Vitamin D3 (25 Mcg = 1000 Iu)] 2,000 unit PO DAILY 05/10/18 [History] Ferrous Sulfate [Iron (65 MG Elemental)] 325 mg PO DAILY 05/10/18 [History] Ibuprofen [Motrin Ib] 200 mg PO Q4H PRN 04/14/19 [History] SUMAtriptan SUCCINATE [Imitrex] 25 mg PO DAILY PRN 04/14/19 [History] [id number]-Ijxd [id number] [Excedrin] 2 each PO Q6HR PRN tab 04/20/19 [Rx] Mirtazapine [Remeron] 7.5 mg PO HS PRN #15 tab 04/20/19 [Rx] Sertraline [Zoloft] 150 mg PO HS #45 tab 04/20/19 [Rx] Follow up Appointment(s)/Referral(s): Karen Watson [Other] - 04/26/19 8:00 am Maliha Gonzalez MD [Primary Care Provider] - 1-2 days Discharge Disposition: HOME SELF-CARE
== END 2019-04-20 09:30 | disposition home or self-care (01) | DRG 885 ==
LOC: EC 18:30 → 3MHU 21:28
PROVIDERS: ADMIT Psychiatry & Neurology Psychiatry; ATTEND Psychiatry & Neurology Psychiatry
DX: F32.2 Major depressive disorder, single episode, severe without psychotic features (principal); F41.9 Anxiety disorder, unspecified; G47.00 Insomnia, unspecified; K21.9 Gastro-esophageal reflux disease without esophagitis; T43.222A Poisoning by selective serotonin reuptake inhibitors, intentional self-harm, initial encounter; Z63.4 Disappearance and death of family member; Z79.82 Long term (current) use of aspirin; Z79.899 Other long term (current) drug therapy; Z82.0 Family history of epilepsy and other diseases of the nervous system; Z87.891 Personal history of nicotine dependence; Z80.0 Family history of malignant neoplasm of digestive organs; M54.2 Cervicalgia; G43.909 Migraine, unspecified, not intractable, without status migrainosus; Z60.2 Problems related to living alone; Z88.1 Allergy status to other antibiotic agents
CPT/HCPCS: 36415; 80053; 80061; 80306; 80320; 80329; 81003; 81025; 82075; 82248; 82550; 83036; 83520; 84443; 85025; 85610; 93005; 96360; 96361; 99285

== ENCOUNTER → 2020-08-30 | Outpatient (CLI) | payer OTHER ==
--- NOTE | 2020-08-31 14:38 | MM ---
Reason for exam: screening (asymptomatic). Last mammogram was performed 1 year and 11 months ago. History: Patient is postmenopausal and is nulliparous. Physical Findings: A clinical breast exam by your physician is recommended on an annual basis and results should be correlated with mammographic findings. MG Screening Mammo w CAD Bilateral CC and MLO view(s) were taken. Prior study comparison: October 04, 2018, bilateral MG screening mammo w CAD. March 26, 2017, bilateral MG screening mammo w CAD. The breast tissue is heterogeneously dense. This may lower the sensitivity of mammography. No significant changes when compared with prior studies. ASSESSMENT: Benign, BI-RAD 2 RECOMMENDATION: Routine screening mammogram of both breasts in 1 year.
== END | disposition home or self-care (01) ==
LOC: RADMAMWWP 08:56
PROVIDERS: ATTEND Obstetrics & Gynecology
DX: Z12.31 Encounter for screening mammogram for malignant neoplasm of breast (principal)
CPT/HCPCS: 77067

== ENCOUNTER → 2021-01-18 | Outpatient (CLI) | payer OTHER ==
[2021-01-18 09:23] VITALS: BP 118/70; PULSE 57; RESP 14; TEMP 98.2
--- NOTE | 2021-01-18 10:04 | P.GSHP ---
History of Present Illness H&P Date: 01/18/21 Chief Complaint: lesion right breast Nissa is a 55 year old white female seen in consultation for Dr. Oglesby regarding a lesion in the right breast. The patient felt a lump under her right breast about 1 month ago. It is not painful. It has not changed in size. It is about 1 cm in size. She is menopausal at this time. She has not had a menstrual period since 2013 following an ablation. She is not complaining of any nipple discharge or skin changes. She has not any recent history of trauma or infection in the breast. She's not had any surgery in the breast. She did have a bilateral mammogram performed on which did not show any discrete lesions of concern. This was reviewed with Dr. Almonte and after review we have recommended an ultrasound be performed of the right breast. Caffeine: 2-3 cups per day Nicotine: Negative Chocolate: Occasional Family history: father: colon cancer maternal aunt: lung cancer grandfather paternal: prostate cancer Hormonal history: Menarche: 13 G0 Uterine ablation 2013/patient has not had a menstrual period since then, she is menopausal at this time BCP: 3 years hormones: none Surgical history: Appendectomy Uterine ablation, for sporadic menstrual periods Medical History: antidepressant/anxiety Social History: smoke: none, used to smoke for 25 years, stopped 1997 alcohol: occasional drugs: none - Constitutional Comment: hot flashes Constitutional: Reports sweats - EENT Comment: early stages of glaucoma Eyes: denies blurred vision, denies pain Ears: bilateral: decreased hearing, tinnitus Ears, nose, mouth and throat: Reports headache, Denies sore throat - Breasts Breasts: bilateral: as per HPI - Cardiovascular Cardiovascular: Denies chest pain, Denies shortness of breath - Respiratory Respiratory: Denies cough, Denies 7 - Gastrointestinal Gastrointestinal: Denies abdominal pain, Denies diarrhea, Denies nausea, Denies vomiting - Genitourinary (Female) Genitourinary: Denies dysuria, Denies hematuria - Menstruation Menstruation: Reports postmenopausal - Musculoskeletal Comment: arthritis Musculoskeletal: Denies myalgias - Integumentary Integumentary: Denies pruritus, Denies rash - Neurological Comment: neck pain, carpel tunnel Neurological: Denies numbness, Denies weakness - Psychiatric Psychiatric: Reports anxiety, Reports depression - Endocrine Comment: hypothyroid/weight gain - Hematologic/Lymphatic Comment: baby aspirin daily - Allergic/Immunologic Allergic/Immunologic: Reports seasonal allergies Past Medical History Past Medical History: GERD/Reflux Additional Past Medical History / Comment(s): hx of abnormal pap, hx of migraines, abnormal heart beat. stress test 2012. History of Any Multi-Drug Resistant Organisms: None Reported Past Surgical History: Orthopedic Surgery, Uterine Ablation Additional Past Surgical History / Comment(s): LEEP PROCEDURE PREVIOUS Past Anesthesia/Blood Transfusion Reactions: No Reported Reaction Past Psychological History: Anxiety, Depression Smoking Status: Former smoker Past Alcohol Use History: None Reported, Occasional Additional Past Alcohol Use History / Comment(s): QUIT SMOKING APPROX 1996, STARTED SMOKING AGE 19, 1PPD. Pt. verb. she started smoking at the age of 11 and stopped in 1997.1-2 PPD. Past Drug Use History: None Reported Additional Drug Use History / Comment(s): Denies - Past Family History Father Family Medical History: Cancer Additional Family Medical History / Comment(s): COLON Medications and Allergies Home Medications Medication Instructions Recorded Confirmed Type Aspirin [Adult Low Dose Aspirin EC] 81 mg PO DAILY 07/23/17 01/18/21 History Multivitamins, Thera [Multivitamin 1 tab PO DAILY 07/23/17 01/18/21 History (formulary)] Ascorbic Acid [Vitamin C] 500 mg PO DAILY 05/10/18 01/18/21 History Cholecalciferol [Vitamin D3 (25 2,000 unit PO DAILY 05/10/18 01/18/21 History Mcg = 1000 Iu)] Ibuprofen [Motrin Ib] 200 mg PO Q4H PRN 04/14/19 01/18/21 History Levothyroxine Sodium [Synthroid] 25 mcg PO DAILY 01/18/21 01/18/21 History Mirtazapine [Remeron] 7.5 mg PO PRN 01/18/21 History Sertraline [Zoloft] 200 mg PO HS 01/18/21 01/18/21 History Allergies Allergy/AdvReac Type Severity Reaction Status Date / Time clindamycin Allergy Intermediate Rash/Hives Verified 01/18/21 09:08 Surgical - Exam Vital Signs Temp Pulse Resp BP Pulse Ox 98.2 F 57 L 14 118/70 97 01/18/21 09:13 01/18/21 09:13 01/18/21 09:13 01/18/21 09:13 01/18/21 09:13 BMI 32.4 - General well developed, well nourished, no distress - Eyes normal ocular movement - ENT normal pinna, normal nares - Neck no masses, trachea midline - Respiratory normal expansion, normal respiratory effort, clear to auscultation - Cardiovascular Rhythm: regular Heart Sounds: normal: S1, S2 - Abdomen Abdomen: soft, non tender, no guarding, no rigid, no rebound - Integumentary normal turgor - Neurologic no disoriented, no combative - Musculoskeletal normal gait - Psychiatric oriented to time, oriented to person, oriented to place, speech is normal, memory intact breast exam: BRA: 38C inspection: Lateral grade 2 ptosis, Fungal infection under both breast as well as in the axillary skin folds Palpation: Right breast: Multi-positional exam dense breast, fibrocystic changes, and ma mmary ridge at the 6 o'clock position not a true discrete mass of concern most likely fibrocystic change Right axilla: No adenopathy of concern Right axilla: No adenopathy of concern Left breast: Multi-positional exam dense breasts, fibrocystic changes, no dominant masses or nodules of concern Left axilla: No adenopathy of concern Results Mammogram reviewed with Dr. Almonte/question of density noted for which ultrasound was recommended Assessment and Plan Assessment: Impression: 1. Patient feels fullness in right breast at the 6 o'clock position/fibrocystic changes most likely no discrete mass appreciated 2. Dense breast 3. Anxiety/depression 4. Ongoing infection under both breast as well as in the axillary skin folds Plan: 1. Nystatin cream 2. Right breast ultrasound attention to the 6 o'clock position were patient is concerned as well as to the radiographic density which was noted 3. Follow-up after ultrasound CC: Dr. Gonzalez, Dr. Oglesby
== END ==
LOC: WWCWWP 08:51
PROVIDERS: ATTEND Surgery
DX: N60.11 Diffuse cystic mastopathy of right breast (principal); N60.12 Diffuse cystic mastopathy of left breast; R92.2 Inconclusive mammogram; F32.9 Major depressive disorder, single episode, unspecified; F41.9 Anxiety disorder, unspecified; B36.8 Other specified superficial mycoses; Z87.891 Personal history of nicotine dependence

== ENCOUNTER → 2021-01-28 | Outpatient (CLI) | payer OTHER ==
--- NOTE | 2021-01-29 09:32 | USB ---
Reason for exam: clinical finding. History: Patient is postmenopausal and is nulliparous. Taking hormonal contraceptives for 3 years. Indicated problem(s): lump or thickening in the right breast. Physical Findings: Nurse did not find any significant physical abnormalities on exam. US Breast RT Prior study comparison: August 30, 2020, bilateral MG screening mammo w CAD. October 04, 2018, bilateral MG screening mammo w CAD. Right complete breast ultrasound includes all four quadrants, the retroareolar region and axilla. Finding demonstrates no cystic or solid lesion seen. No mass or cyst at palpable lump right 5 o'clock approximately 6cm from nipple. These results were verbally communicated with the patient and result sheet given to the patient on 01/28/21 ASSESSMENT: Benign, BI-RAD 2 RECOMMENDATION: Return to routine screening mammogram schedule for both breasts. Back on schedule. Manage on a clinical basis with regard to palpable lump.
== END | disposition home or self-care (01) ==
LOC: RADUSWWP 08:23
PROVIDERS: ATTEND Surgery
DX: R92.8 Other abnormal and inconclusive findings on diagnostic imaging of breast (principal); Z78.0 Asymptomatic menopausal state

== ENCOUNTER 2021-04-05 09:44 | Day surgery (SDC) | payer OTHER ==
[2021-04-03 12:08] VITALS: BMI 32.9
[~2021-04-05 09:44] MED LIST changes: -DEXAMETHASONE SOD PHOSPHATE 10 MG/ML 1 ML VIAL IV ONE; +DEXAMETHASONE SOD PHOSPHATE 4 MG/ML 1 ML VIAL IV ONE; +HYDROmorphone 0.5 MG/0.5 ML SYRINGE IVP PRN; -HYDROmorphone 1 MG/ML 1 ML SYRINGE IVP PRN; -Pre Op ABX Message 1 EACH MISC MISCELLANE ONE; +SCOPOLAMINE 1.5MG/72HR PATCH TRANSDERM ONE
[2021-04-05] MEDS ORDERED: LIDOCAINE 1% (10MG/ML) FOR IV START INTRADERMA ONE (10:22)
[2021-04-05 10:25] VITALS: TEMP 98.6
[2021-04-05] MEDS ORDERED: PROPOFOL 10 MG/ML 20 ML VIAL IV ONE (10:41)
[2021-04-05] MEDS ORDERED: fentaNYL (PF) 50 MCG/ML 2 ML AMP ONE (10:41)
[2021-04-05] MEDS ORDERED: MIDAZOLAM 2 MG/2 ML VIAL ONE (10:41)
--- NOTE | 2021-04-05 11:01 | P.PCN ---
Date of Procedure: 04/05/21 Procedure(s) Performed: BRIEF HISTORY: Patient is a 55-year-old pleasant 8 female scheduled for an elective colonoscopy as a part of screening for colorectal neoplasia and family history of colon cancer diagnosed in her father at age 70. PROCEDURE PERFORMED: Colonoscopy. PREOPERATIVE DIAGNOSIS: Screening for colon cancer/family history of colon cancer. IV sedation per Anesthesia. PROCEDURE: After informed consent was obtained, the patient, was brought into the endoscopy unit. IV sedation was administered by Anesthesia under continuous monitoring. Digital rectal examination was normal. Initially the Olympus CF-160 flexible video colonoscope was then inserted in the rectum, gradually advanced into the cecum without any difficulty. Careful examination was performed as the scope was gradually being withdrawn. Ileocecal valve and the appendiceal orifice were visualized and appeared normal. Prep was excellent. Mucosa of the cecum, ascending colon, transverse colon, descending colon, sigmoid colon, and rectum appeared normal. Retroflexion was performed in the rectum and no lesions were seen. The patient tolerated the procedure well. IMPRESSION: Normal-appearing colon from rectum to cecum no evidence of colorectal neoplasia. RECOMMENDATIONS: Findings of this examination were discussed with the patient as well as a family. She was advised to have a repeat screening colonoscopy in 5 years because of the family history of colon cancer.
[2021-04-05 11:24] VITALS: BP 107/69; PULSE 58; RESP 18
== END 2021-04-05 12:09 | disposition home or self-care (01) ==
LOC: ORWHC2ENDO 09:44
PROVIDERS: ATTEND Internal Medicine Gastroenterology
DX: Z80.0 Family history of malignant neoplasm of digestive organs (principal); F32.9 Major depressive disorder, single episode, unspecified; E07.9 Disorder of thyroid, unspecified; Z79.899 Other long term (current) drug therapy; Z79.82 Long term (current) use of aspirin; Z88.1 Allergy status to other antibiotic agents
CPT/HCPCS: J2250; J3010; J2704; G0105